=== PATIENT | male | born 1950 | race American Indian/Alaskan Native ===

== ENCOUNTER → 2016-07-16 | Outpatient (CLI) | payer MEDICARE ==
[~2016-07-16] MED LIST: ALLP300T; ALLP300T PO; ALN70T PO; AMOX-355 PO; ASP325T PO; ASP81TEC PO; BISO1TAB3 PO; BISO1TAB39; CALC-656 PO; CALC-794 PO; CARB1TAB6 PO; CITA10TA; CITA40TA19 PO; CLOP75TA; COLC0.6T56 PO; CPR500T PO; CRV25T PO; DABI150C5 PO; DICL100G18 TOP; FLUO20CA25 PO; FLUO40CA PO; FRSM40T PO; GBPN300C PO; HYDR-3583 PO; HYDR-3816 PO; ISM30TCR PO; ISM60TCR PO; ISOS5TAB3; KCL10CCR; LACT1CAP8 PO; LISI-597 PO; LISI10TA2 PO; LSNP20T PO; MAGN400T39 PO; METF-380 PO; METF850T2 PO; METFOR850T PO; METO-272 PO; METO50TA2 PO; MULT-35 PO; NAPR-243 PO; NAPR375T2 PO; NORT10CA PO; OMEP20TA2 PO; OMEP40CA36 PO; OMG1KC PO; PHEN100T26 PO; PNT40TEC PO; POTA10CA43 PO; POTA10TA36 PO; POTA20TA15 PO; PROP1TAB77 PO; RANI300T4; RANO500T2 PO; ROPI2TAB4 PO; RT-COMBINH IH; SIMV20TA3 PO; SIMV40TA4 PO; SMV20T PO; SULF1TAB35 PO; TAMS0.4C98 PO; TESTOSTERONE INJ IM; TMSL.4C PO; TRAM50TA2; TRAZ300T3 PO; TRZ100T PO; ZLP10T PO; ZOLP5TAB
--- NOTE | 2016-07-16 13:19 | Diagnostic Imaging Report ---
GASTRIC EMPTYING TIME SCAN TECHNIQUE: Anterior and posterior planar scintigraphic images of the stomach were obtained after the patient ingested 1.1 mCi of technetium 99m sulfur collate mixed with eggs. INDICATION: Nausea. COMPARISON: None available. FINDINGS: A time activity curve was calculated for the stomach with the following values of retained activity in the stomach post ingestion: 1 hour: 75% (delayed if greater than 90% retained) 2 hour: 61% (delayed if greater than 60% retained) 3 hour: 51% (delayed if greater than 30% retained) 4 hour: 45% (delayed if greater than 10%) The half-time (T1/2) for gastric emptying was 208 minutes minutes, which is abnormally prolonged. IMPRESSION: 1. Delayed gastric emptying which favors gastroparesis versus less likely partial outlet obstruction. Dictated by: Dictated on workstation # [id number]
== END ==
LOC: CARD 08:33
PROVIDERS: ATTEND Internal Medicine Gastroenterology
DX: R10.84 Generalized abdominal pain (principal); R11.0 Nausea
CPT/HCPCS: 78264

== ENCOUNTER → 2016-10-30 | Outpatient (CLI) | payer MEDICARE ==
[~2016-10-30] VITALS: Ht 172.7 cm; Wt 113.4 kg
[~2016-10-30] MED LIST changes: +CATHETER FLUSH 10 ML SYR IV PRN; +REGADENOSON 0.4 MG/5 ML SYR (LEXISCAN) IV ONE
[2016-10-30 14:39] VITALS: BP 175/82
--- NOTE | 2016-10-31 07:06 | STRESS TEST ---
DATE OF SERVICE: 10/30/2016 LEXISCAN MYOVIEW STRESS TEST PROCEDURE: Lexiscan Myoview stress test. REFERRING PHYSICIAN: Dr. Gaffney. INDICATION: Baseline heart rate is 67, baseline blood pressure 175/82, baseline EKG is sinus rhythm with ventricular paced rhythm. IN SUMMARY: The patient was injected with 9.16 mCi of technetium-99 Myoview and the resting images were obtained. Then, the patient received 0.4 mg of Lexiscan followed by 28.2 mCi of technetium-99 Myoview. Later during the test, there was intermittent intrinsic rhythm, which showed nondiagnostic T-wave abnormality. The resting and stress images were reviewed and compared in the short axis, horizontal long axis and vertical long axis views. Review of images showed decreased uptake including the true apex and inferoapical segment with no significant ischemia. SSS is 5, SDS 1, TID value 1.07. On the gated images, the left ventricle appeared to be prominent with mild diffuse left ventricular hypokinesia, dyskinesia of the apex with calculated ejection fraction of 46%. IN CONCLUSION: 1. The patient tolerated Lexiscan well. 2. Baseline paced rhythm with intermittent intrinsic rhythm showing abnormal EKG. 3. Aneurysmal apex with infarcted apex with no significant ischemia. 4. Prominent left ventricle with diffuse left ventricular hypokinesia, aneurysmal apex. Calculated ejection fraction of 46%. Job ID: [id number] DocumentID: [id number] Dictated Date: 10/30/2016 16:11:10 Primary Care Md Date: 10/30/2016 16:43:16 Dictated By: MARY SQUIRES MD
== END ==
LOC: CARD 12:59
PROVIDERS: ATTEND Internal Medicine Cardiovascular Disease
DX: R07.9 Chest pain, unspecified (principal); I10 Essential (primary) hypertension; E78.5 Hyperlipidemia, unspecified; R06.02 Shortness of breath; I63.9 Cerebral infarction, unspecified; Z82.49 Family history of ischemic heart disease and other diseases of the circulatory system
CPT/HCPCS: 78452; 93017

== ENCOUNTER → 2016-11-04 | Outpatient (CLI) | payer MEDICARE ==
[~2016-11-04] MED LIST changes: -CATHETER FLUSH 10 ML SYR IV PRN; -REGADENOSON 0.4 MG/5 ML SYR (LEXISCAN) IV ONE
[2016-11-04 14:36] LABS: BASOPHILS % (AUTO) 1 % (0-10); EOSINOPHILS # (AUTO) 0.2 10^3/uL (0.0-0.3); EOSINOPHILS % (AUTO) 3 % (0-10); LYMPHOCYTES # (AUTO) 1.2 X 10^3 (1.0-4.0); LYMPHOCYTES % (AUTO) 23 % (12-44); MEAN CORPUSCULAR HEMOGLOBIN 30 PG (25-34); MEAN CORPUSCULAR HGB CONC 35 G/DL (32-36); MEAN CORPUSCULAR VOLUME 85 FL (80-99); MEAN PLATELET VOLUME 9.1 FL (7.4-10.4); MONOCYTES # (AUTO) 0.5 X 10^3 (0.0-1.0); MONOCYTES % (AUTO) 9 % (0-12); NEUTROPHILS # (AUTO) 3.5 X 10^3 (1.8-7.8); NEUTROPHILS % (AUTO) 64 % (42-75); PLATELET COUNT 199 10^3/uL (130-400); RED BLOOD COUNT 4.37 10^6/uL (4.35-5.85); RED CELL DISTRIBUTION WIDTH 15.1 % (10.0-14.5); WHITE BLOOD COUNT 5.5 10^3/uL (4.3-11.0)
[2016-11-04 14:52] LABS: ALANINE AMINOTRANSFERASE 22 U/L (0-55); ALBUMIN 4.2 G/DL (3.2-4.5); ANION GAP 7 MMOL/L (5-14); ASPARTATE AMINO TRANSFERASE 17 U/L (5-34); BILIRUBIN,TOTAL 0.7 MG/DL (0.1-1.0); BLOOD UREA NITROGEN 13 MG/DL (7-18); BUN/CREATININE RATIO 16; CALCIUM 9.3 MG/DL (8.5-10.1); CARBON DIOXIDE 26 MMOL/L (21-32); CHLORIDE 108 MMOL/L (98-107); CHOLESTEROL 130 MG/DL (< 200); CREATININE SERUM 0.81 MG/DL (0.60-1.30); DIRECT LDL 71 MG/DL (1-129); GFR ESTIMATED > 60; GLUCOSE 110 MG/DL (70-105); POTASSIUM 3.8 MMOL/L (3.6-5.0); SODIUM 141 MMOL/L (135-145); TOTAL PROTEIN 6.5 G/DL (6.4-8.2); TRIGLYCERIDES 125 MG/DL (<150); URIC ACID 4.4 MG/DL (2.6-7.2); VLDL CHOLESTEROL 25 MG/DL (5-40)
== END ==
LOC: LAB 13:52
PROVIDERS: ATTEND Nurse Practitioner Adult Health
DX: E78.00 Pure hypercholesterolemia, unspecified (principal); M1A.0690 Idiopathic chronic gout, unspecified knee, without tophus (tophi)
CPT/HCPCS: 36415; 80053; 80061; 84550; 85025

== ENCOUNTER 2016-12-28 15:53 | Emergency (ER) | payer OTHER, MEDICARE ==
[~2016-12-28] VITALS: Ht 182.9 cm; Wt 90.7 kg
[~2016-12-28 15:53] MED LIST changes: -METO-272 PO; +METO-370 PO
[2016-12-28] MEDS ORDERED: NS 100 ML (IVPB) BAG IV ONE (17:00)
[2016-12-28] MEDS ORDERED: IOHEXOL 350 MG/ML 100 ML (OMNIPAQUE 350) VIAL IV ONE (17:00)
[2016-12-28 17:03] LABS: BASOPHILS % (AUTO) 1 % (0-10); EOSINOPHILS # (AUTO) 0.1 10^3/uL (0.0-0.3); EOSINOPHILS % (AUTO) 2 % (0-10); LYMPHOCYTES # (AUTO) 1.3 X 10^3 (1.0-4.0); LYMPHOCYTES % (AUTO) 19 % (12-44); MEAN CORPUSCULAR HEMOGLOBIN 29 PG (25-34); MEAN CORPUSCULAR HGB CONC 35 G/DL (32-36); MEAN CORPUSCULAR VOLUME 84 FL (80-99); MEAN PLATELET VOLUME 9.6 FL (7.4-10.4); MONOCYTES # (AUTO) 0.8 X 10^3 (0.0-1.0); MONOCYTES % (AUTO) 11 % (0-12); NEUTROPHILS # (AUTO) 4.6 X 10^3 (1.8-7.8); NEUTROPHILS % (AUTO) 67 % (42-75); PLATELET COUNT 220 10^3/uL (130-400); RED CELL DISTRIBUTION WIDTH 14.6 % (10.0-14.5); WHITE BLOOD COUNT 6.8 10^3/uL (4.3-11.0)
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
[2016-12-28 17:23] LABS: ALBUMIN 4.4 GM/DL (3.2-4.5); BILIRUBIN,TOTAL 0.7 MG/DL (0.1-1.0); CALCIUM 9.7 MG/DL (8.5-10.1); CREATININE SERUM 1.37 MG/DL (0.60-1.30); POTASSIUM 4.3 MMOL/L (3.6-5.0)
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
--- NOTE | 2016-12-28 17:40 | Diagnostic Imaging Report ---
INDICATION: Chest cold x 3 weeks. TECHNIQUE: Single view chest, 4:38 p.m. CORRELATION STUDY: 06/21/2016. FINDINGS: Left-sided pacemaker is stable. A right-sided catheter tip at the right atrium is unchanged. Unchanged cardiac enlargement and prominent mediastinum. Vasculature is improved and near normal on followup. Lung rose are overall relatively clear. IMPRESSION: Cardiac enlargement. Vasculature is improved and near normal on followup. No infiltrates. Dictated by: Dictated on workstation # [id number]
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
[2016-12-28 17:57] VITALS: BP 133/66
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
[2016-12-28 18:08] LABS: BILIRUBIN,URINE NEGATIVE (NEGATIVE); KETONES,URINE NEGATIVE (NEGATIVE); LEUKOCYTE ESTERASE ,URINE NEGATIVE (NEGATIVE); NITRITE,URINE NEGATIVE (NEGATIVE); PH,URINE 5 (5-9); PROTEIN,URINE NEGATIVE (NEGATIVE); SQUAMOUS EPITHELIAL CELL,UR 0-2 /HPF; UROBILINOGEN,URINE NORMAL (NORMAL); WBC,URINE 0-2 /HPF
--- NOTE | 2016-12-28 18:08 | Diagnostic Imaging Report ---
INDICATION: Back pain. EXAMINATION: CT thoracic and lumbar spine. Contiguous axial sections were taken through the thoracic and lumbar spine. Sagittal and coronal reconstructed images were also obtained. COMPARISON: There are no previous CT thoracic or lumbar spine examinations available for comparison. FINDINGS: On the reconstructed sagittal images there is a 30-40% compression deformity of the anterior superior endplate of T6. This injury was not clearly present on the prior chest exam of 06/21/16. Even so, this injury could be long-standing in nature. I am not convinced that this is related to an acute abnormality. Hower, if clinical concern regarding an acute abnormality persists, then a nuclear medicine bone scan should be considered for further study. The patient does have a pacemaker in place and this would preclude further evaluation by MRI. The other thoracic vertebrae heights are within normal limits. There is no fracture of the lumbar vertebra. There does not appear to be any significant high-grade central stenosis of the thoracic or lumbar spine. There are chronic pulmonary changes involving the visualized lungs. There is no paraspinal mass. The perinephric stranding about the kidneys, seen on the previous CT abdomen/pelvis exam of 05/27/16 is again evident and no different. IMPRESSION: 1. There is a 30-40% compression deformity of the superior endplate of T6. This injury may well be long-standing in nature. Recommendations as above. 2. No other acute bony abnormality is noted. 3. These results were discussed with Dr. Anna Glover in the ER. Dictated by: Dictated on workstation # [id number]
--- OUTSIDE RECORDS SUMMARY | 2016-12-31 09:48 | XMS REPORT | Continuity of Care Document ---
Author Author [facility] Organization [facility] Address Unknown Phone Unavailable Allergies Active Description Code Type Severity Reaction Onset Reported/Identified Relationship to Patient Clinical Status Yes NKANo Known Allergies NKA Miscellaneous Allergy Unknown N/ A 09/10/2005 Yes No Known Drug Allergies [id number] Drug Allergy Mild N/A 01/15/2009 Yes No Known Drug Allergies [id number] Drug Allergy Unknown N/ A 01/30/2015 Medications Problems Date Dx Coded Attending Type Code Diagnosis Diagnosed By 07/23/2010 Ot 530.81 07/23/2010 Ot 535.40 07/23/2010 Ot 578.1 12/15/2010 Ot 250.00 DIAB TONEI WO COMPL, TYPE II OR UNSPEC TY 12/15/2010 Ot 272.4 HYPERLIPIDEMIA NEC/NOS 12/15/2010 Ot 401.9 HYPERTENSION NOS 12/15/2010 Ot 414.01 CORONARY ATHEROSCLEROSIS OF [place] CORON 12/15/2010 Ot 440.0 AORTIC ATHEROSCLEROSIS 12/15/2010 Ot 440.21 ATHEROSCL [place] ARTER EXTREM W INTERMIT 12/15/2010 Ot 786.50 CHEST PAIN NOS 12/15/2010 Ot V45.01 CARDIAC PACEMAKER IN SITU 12/15/2010 Ot V45.82 PERCUTANEOUS TRANSLUM CORON ANGIOPLASTY 12/15/2010 Ot V58.66 LONG-TERM (CURRENT) USE OF ASPIRIN 12/15/2010 Ot V58.69 OTH MED,LT,CURRENT USE 03/12/2011 Ot 250.00 DIAB TONIE WO COMPL, TYPE II OR UNSPEC TY 03/12/2011 Ot 428.0 CONGESTIVE HEART FAILURE NOS 03/12/2011 Ot 459.81 VENOUS INSUFFICIENCY NOS 03/12/2011 Ot 496 CHR AIRWAY OBSTRUCT NEC 03/12/2011 Ot V58.66 LONG-TERM (CURRENT) USE OF ASPIRIN 03/12/2011 Ot V58.69 OTH MED,LT,CURRENT USE 09/16/2011 Ot 530.12 ACUTE ESOPHAGITIS 09/16/2011 Ot 531.90 STOMACH ULCER NOS 09/16/2011 Ot V58.69 OTH MED,LT,CURRENT USE 11/09/2011 Ot 250.00 DIAB TONIE WO COMPL, TYPE II OR UNSPEC TY 11/09/2011 Ot 530.81 ESOPHAGEAL REFLUX 11/09/2011 Ot 553.3 DIAPHRAGMATIC HERNIA 11/09/2011 Ot 791.9 ABN URINE FINDINGS NEC 06/12/2012 Ot 327.23 OBSTRUCTIVE SLEEP APNEA (ADULT) (PEDIATR 06/12/2012 Ot 327.51 PERIODIC LIMB MOVEMENT DISORDER 12/07/2012 MARY SQUIRES MD Ot 250.00 DIAB TONIE WO COMPL, TYPE II OR UNSPEC TY 12/07/2012 MARY SQUIRES MD Ot 272.4 HYPERLIPIDEMIA NEC/NOS 12/07/2012 MARY SQUIRES MD Ot 401.9 HYPERTENSION NOS 12/07/2012 MARY SQUIRES MD Ot 414.01 CORONARY ATHEROSCLEROSIS OF [place] CORON 12/07/2012 MARY SQUIRES MD Ot 414.4 CORONARY ATHEROSCLEROSIS DUE TO [place] 12/07/2012 MARY SQUIRES MD Ot 786.50 CHEST PAIN NOS 12/07/2012 MARY SQUIRES MD Ot V45.01 CARDIAC PACEMAKER IN SITU 12/07/2012 MARY SQUIRES MD Ot V45.82 PERCUTANEOUS TRANSLUM CORON ANGIOPLASTY 12/07/2012 MARY SQUIRES MD Ot V58.69 OT MED,LT,CURRENT USE 01/20/2013 CARMELLA RBOWNE, DEYVI Livingston Ot 786.50 CHEST PAIN NOS 02/21/2015 MIRELA DO, HERMELINDA F Ot 836.0 02/21/2015 MIRELA DO, HERMELINDA F Ot E000.8 02/21/2015 MIRELA DO, HERMELINDA F Ot E928.9 02/21/2015 MIRELA DO, HERMELINDA F Ot V72.63 02/21/2015 MIRELA DO, HERMELINDA F Ot V74.8 06/20/2015 HANNA WHITE MD Ot E11.9 TYPE 2 DIABETES MELLITUS WITHOUT COMPLIC 06/20/2015 HANNA WHITE MD Ot F32.9 MAJOR DEPRESSIVE DISORDER, SINGLE EPISOD 06/20/2015 HANNA WHITE MD Ot G20 PARKINSON'S DISEASE 06/20/2015 HANNA WHITE MD Ot G47.00 INSOMNIA, UNSPECIFIED 06/20/2015 HANNA WHITE MD Ot I10 ESSENTIAL (PRIMARY) HYPERTENSION 06/20/2015 HANNA WHITE MD Ot I25.10 ATHSCL HEART DISEASE OF [place] CORONARY 06/20/2015 HANNA WHITE MD Ot I73.9 PERIPHERAL VASCULAR DISEASE, UNSPECIFIED 06/20/2015 HANNA WHITE MD, Ot J44.9 CHRONIC OBSTRUCTIVE PULMONARY DISEASE, U 06/20/2015 HANNA WHITE MD, Ot K21.9 GASTRO-ESOPHAGEAL REFLUX DISEASE WITHOUT 06/20/2015 HANNA WHITE MD, Ot L03.113 CELLULITIS OF RIGHT UPPER LIMB 06/20/2015 HANNA WHITE MD Ot S61.441A PUNCTURE WOUND WITH FOREIGN BODY OF RIGH 06/20/2015 HANNA WHITE MD, Ot W45.8XXA OTH FOREIGN BODY OR OBJECT ENTERING THRO 06/20/2015 HANNA WHITE MD Ot Y92.[address]STRU[address] 06/20/2015 HANNA WHITE MD, Ot Y93.E9 ACTIVITY, OTHER INTERIOR PROPERTY AND CL 06/20/2015 HANNA WHITE MD, Ot Z23 ENCOUNTER FOR IMMUNIZATION 06/20/2015 HANNA WHITE MD Ot Z79.01 SENIOR CARE (CURRENT) USE OF ANTICOAGULANT 06/20/2015 HANNA WHITE MD Ot Z87.891 PERSONAL HISTORY OF NICOTINE DEPENDENCE 06/20/2015 HANNA WHITE MD Ot Z95.0 PRESENCE OF CARDIAC PACEMAKER 06/20/2015 HANNA WHITE MD Ot Z95.5 PRESENCE OF CORONARY ANGIOPLASTY IMPLANT 06/28/2015 MIRELA DO, HERMELINDA F Ot 836.0 06/28/2015 MIRELA DO, HERMELINDA F Ot E000.8 06/28/2015 MIREAL DO, HERMELINDA F Ot E928.9 06/28/2015 MIRELA DO, HERMELINDA F Ot V72.63 06/28/2015 MIRELA DO, HERMELINDA F Ot V74.8 07/10/2015 HANNA WHITE MD, Ot L03.113 07/10/2015 HANNA WHITE MD, Ot M79.641 07/17/2015 Ot 272.4 07/17/2015 Ot 401.9 07/17/2015 Ot 414.00 07/17/2015 Ot 272.4 07/17/2015 Ot 272.4 07/17/2015 Ot 401.9 07/17/2015 Ot 414.01 07/17/2015 Ot V58.69 07/17/2015 Ot 414.00 07/17/2015 Ot 786.50 07/17/2015 Ot 272.4 07/17/2015 Ot 401.9 07/17/2015 Ot 414.01 07/17/2015 Ot 414.00 07/17/2015 Ot 786.50 07/17/2015 Ot 733.90 07/17/2015 Ot 715.95 07/17/2015 Ot 459.81 07/17/2015 Ot V72.83 07/17/2015 Ot V74.8 07/17/2015 Ot V72.84 07/17/2015 Ot 414.00 07/17/2015 Ot 786.50 07/17/2015 Ot 272.4 07/17/2015 Ot 401.9 07/17/2015 Ot 414.01 07/17/2015 Ot 719.42 07/17/2015 Ot 782.0 07/17/2015 Ot 553.3 07/17/2015 Ot V72.63 07/17/2015 Ot V74.8 07/17/2015 Ot 272.4 07/17/2015 Ot 414.00 07/17/2015 Ot 272.4 07/17/2015 Ot 401.9 07/17/2015 Ot 414.00 07/17/2015 Ot 272.4 07/17/2015 Ot 414.00 07/17/2015 Ot 789.00 07/17/2015 Ot 729.82 07/17/2015 Ot V58.69 07/17/2015 Ot 496 07/17/2015 SHAW BROWNE, MARY Grant Ot 397.0 07/17/2015 SHAW BROWNE, MARY Grant Ot 414.00 07/17/2015 SHAW BROWNE, MARY Grant Ot 424.0 07/17/2015 SHAW BROWNE, MARY Grant Ot 786.50 07/17/2015 SHAW BROWNE, MARY Grant Ot V72.81 07/17/2015 SHAW BROWNE, MARY Grant Ot 272.4 07/17/2015 SHAW BROWNE, MARY Grant Ot 414.01 07/17/2015 MIRELA DOHERMELINDA F Ot 836.0 07/17/2015 MIRELA DO, HERMELINDA F Ot E000.8 07/17/2015 MIRELA DO HERMELINDA F Ot E928.9 07/17/2015 MIRELA DO, HERMELINDA F Ot V72.63 07/17/2015 MIRELA DO, HERMELINDA F Ot V74.8 07/17/2015 CINDY BROWNE, HANNA Castaneda Ot L03.113 07/17/2015 CINDY BROWNE, HANNA Castaneda Ot M79.641 07/25/2015 ALMA RIVERA MD Ot L03.113 07/27/2015 CINDY BROWNE, HANNA Castaneda Ot L03.113 CELLULITIS OF RIGHT UPPER LIMB 07/27/2015 CINDY BROWNE, HANNA Castaneda Ot M79.641 PAIN IN RIGHT HAND 08/09/2015 NICOLE BROWNE, ALMA Gilbert Ot L03.113 08/09/2015 NICOLE BROWNE, ALMA Gilbert Ot E11.9 TYPE 2 DIABETES MELLITUS WITHOUT COMPLIC 08/09/2015 NICOLE BROWNE, ALMA Gilbert Ot F32.9 MAJOR DEPRESSIVE DISORDER, SINGLE EPISOD 08/09/2015 ALMA RIVERA MD Ot F41.9 ANXIETY DISORDER, UNSPECIFIED 08/09/2015 ALMA RIVERA MD Ot G20 PARKINSON'S DISEASE 08/09/2015 ALMA RIVERA MD Ot I10 ESSENTIAL (PRIMARY) HYPERTENSION 08/09/2015 ALMA RIVERA MD Ot I25.10 ATHSCL HEART DISEASE OF [place] CORONARY 08/09/2015 NICOLE BROWNE, ALMA Gilbert Ot I48.91 UNSPECIFIED ATRIAL FIBRILLATION 08/09/2015 NICOLE BROWNE, ALMA Gilbert Ot J44.9 CHRONIC OBSTRUCTIVE PULMONARY DISEASE, U 08/09/2015 NICOLE BROWNE, ALMA Gilbert Ot M60.241 FOREIGN BODY GRANULOMA OF SOFT TISSUE, N 08/09/2015 ALMA RIVERA MD Ot Z18.9 RETAINED FOREIGN BODY FRAGMENTS, UNSPECI 08/17/2015 ALMA RIVERA MD Ot L03.113 08/23/2015 ALMA RIVERA MD Ot M60.241 08/23/2015 ALMA RIVERA MD Ot Z01.812 08/23/2015 ALMA RIVERA MD Ot Z11.2 08/23/2015 ALMA RIVERA MD Ot Z18.9 02/15/2016 Ot 272.4 HYPERLIPIDEMIA NEC/NOS 02/15/2016 Ot 401.9 HYPERTENSION NOS 02/15/2016 Ot 414.01 CORONARY ATHEROSCLEROSIS OF [place] CORON 02/15/2016 Ot V58.69 OTH MED,LT,CURRENT USE 02/15/2016 Ot 414.00 CORON ATHEROSCLER NOS TYPE VESSEL, NATIV 02/15/2016 Ot 786.50 CHEST PAIN NOS 02/15/2016 Ot 272.4 HYPERLIPIDEMIA NEC/NOS 02/15/2016 Ot 401.9 HYPERTENSION NOS 02/15/2016 Ot 414.01 CORONARY ATHEROSCLEROSIS OF [place] CORON 02/15/2016 Ot 414.00 CORON ATHEROSCLER NOS TYPE VESSEL, NATIV 02/15/2016 Ot 786.50 CHEST PAIN NOS 02/15/2016 Ot 733.90 BONE CARTILAGE DIS NOS 02/15/2016 Ot 715.95 OSTEOARTHROS NOS-PELVIS 02/15/2016 Ot 459.81 VENOUS INSUFFICIENCY NOS 02/15/2016 Ot V72.83 EXAM PRE-OPERATIVE NEC 02/15/2016 Ot V74.8 SCREEN-BACTERIAL DIS NEC 02/15/2016 Ot V72.84 EXAM PRE-OPERATIVE NOS 02/15/2016 Ot 414.00 CORON ATHEROSCLER NOS TYPE VESSEL, NATIV 02/15/2016 Ot 786.50 CHEST PAIN NOS 02/15/2016 Ot 272.4 HYPERLIPIDEMIA NEC/NOS 02/15/2016 Ot 401.9 HYPERTENSION NOS 02/15/2016 Ot 414.01 CORONARY ATHEROSCLEROSIS OF [place] CORON 02/15/2016 Ot 719.42 JOINT PAIN-UP/ARM 02/15/2016 Ot 782.0 SKIN SENSATION DISTURB 02/15/2016 Ot 553.3 DIAPHRAGMATIC HERNIA 02/15/2016 Ot V72.63 PRE-PROCEDURAL LABORATORY EXAMINATION 02/15/2016 Ot V74.8 SCREEN-BACTERIAL DIS NEC 02/15/2016 Ot 272.4 HYPERLIPIDEMIA NEC/NOS 02/15/2016 Ot 414.00 CORON ATHEROSCLER NOS TYPE VESSEL, NATIV 02/15/2016 Ot 272.4 HYPERLIPIDEMIA NEC/NOS 02/15/2016 Ot 401.9 HYPERTENSION NOS 02/15/2016 Ot 414.00 CORON ATHEROSCLER NOS TYPE VESSEL, NATIV 02/15/2016 Ot 272.4 HYPERLIPIDEMIA NEC/NOS 02/15/2016 Ot 414.00 CORON ATHEROSCLER NOS TYPE VESSEL, NATIV 02/15/2016 Ot 789.00 ABDOMINAL PAIN, UNSPECIFIED SITE 02/15/2016 Ot 729.82 CRAMP IN LIMB 02/15/2016 Ot V58.69 OT MED,LT,CURRENT USE 02/15/2016 Ot 496 CHR AIRWAY OBSTRUCT NEC 02/15/2016 SHAWMARY KING MD Ot 397.0 TRICUSPID VALVE DISEASE 02/15/2016 MARY SQUIRES MD Ot 414.00 CORON ATHEROSCLER NOS TYPE VESSEL, NATIV 02/15/2016 MARY SQUIRES MD Ot 424.0 MITRAL VALVE DISORDER 02/15/2016 MARY SQUIRES MD Ot 786.50 CHEST PAIN NOS 02/15/2016 MARY SQUIRES MD Ot V72.81 [id number] CARDIOVASCULAR 02/15/2016 MARY SQUIRES MD Ot 272.4 HYPERLIPIDEMIA NEC/NOS 02/15/2016 MARY SQUIRES MD Ot 414.01 CORONARY ATHEROSCLEROSIS OF [place] CORON 02/15/2016 HERMELINDA DIETZ DO Ot 836.0 TEAR MED MENISC KNEE-CUR 02/15/2016 HERMELINDA DIETZ DO Ot E000.8 OTHER EXTERNAL CAUSE STATUS 02/15/2016 HERMELINDA DIETZ DO Ot E928.9 ACCIDENT NOS 02/15/2016 HERMELINDA DIETZ DO Ot V72.63 PRE-PROCEDURAL LABORATORY EXAMINATION 02/15/2016 HERMELINDA DIETZ DO Ot V74.8 SCREEN-BACTERIAL DIS NEC 02/15/2016 ALMA RIVERA MD Ot L03.113 CELLULITIS OF RIGHT UPPER LIMB 02/15/2016 ALMA RIVERA MD, Ot M60.241 FOREIGN BODY GRANULOMA OF SOFT TISSUE, N 02/15/2016 ALMA RIVERA MD Ot Z01.812 ENCOUNTER FOR PREPROCEDURAL LABORATORY E 02/15/2016 ALMA RIVERA MD, Ot Z11.2 ENCOUNTER FOR SCREENING FOR OTHER BACTER 02/15/2016 ALMA RIVERA MD, Ot Z18.9 RETAINED FOREIGN BODY FRAGMENTS, UNSPECI 02/16/2016 ZEHRA BROWNE, RANDELL Yousif Ot G47.33 OBSTRUCTIVE SLEEP APNEA (ADULT) (PEDIATR 02/19/2016 MARY SQUIRES MD Ot E78.5 HYPERLIPIDEMIA, UNSPECIFIED 02/19/2016 MARY SQUIRES MD Ot I10 ESSENTIAL (PRIMARY) HYPERTENSION 02/19/2016 MARY SQUIRES MD Ot I25.10 ATHSCL HEART DISEASE OF [place] CORONARY 02/19/2016 MARY SQUIRES MD Ot I63.9 CEREBRAL INFARCTION, UNSPECIFIED 02/19/2016 MARY SQUIRES MD Ot R00.2 PALPITATIONS 02/19/2016 MARY SQUIRES MD Ot R07.9 CHEST PAIN, UNSPECIFIED 02/21/2016 ZEHRA BROWNE, RANDELL Yousif Ot G47.33 OBSTRUCTIVE SLEEP APNEA (ADULT) (PEDIATR 03/12/2016 MARY SQUIRES MD Ot E78.5 HYPERLIPIDEMIA, UNSPECIFIED 03/12/2016 MARY SQUIRES MD Ot I10 ESSENTIAL (PRIMARY) HYPERTENSION 03/12/2016 MARY SQUIRES MD Ot I25.10 ATHSCL HEART DISEASE OF [place] CORONARY 03/12/2016 MARY SQUIRES MD Ot I63.9 CEREBRAL INFARCTION, UNSPECIFIED 03/12/2016 MARY SQUIRES MD Ot R00.2 PALPITATIONS 03/12/2016 MARY SQUIRES MD Ot R07.9 CHEST PAIN, UNSPECIFIED 04/10/2016 Ot 414.00 CORON ATHEROSCLER NOS TYPE VESSEL, NATIV 04/10/2016 Ot 786.50 CHEST PAIN NOS 04/10/2016 Ot 272.4 HYPERLIPIDEMIA NEC/NOS 04/10/2016 Ot 401.9 HYPERTENSION NOS 04/10/2016 Ot 414.01 CORONARY ATHEROSCLEROSIS OF [place] CORON 04/10/2016 Ot 414.00 CORON ATHEROSCLER NOS TYPE VESSEL, NATIV 04/10/2016 Ot 786.50 CHEST PAIN NOS 04/10/2016 Ot 733.90 BONE CARTILAGE DIS NOS 04/10/2016 Ot 715.95 OSTEOARTHROS NOS-PELVIS 04/10/2016 Ot 459.81 VENOUS INSUFFICIENCY NOS 04/10/2016 Ot V72.83 EXAM PRE-OPERATIVE NEC 04/10/2016 Ot V74.8 SCREEN-BACTERIAL DIS NEC 04/10/2016 Ot V72.84 EXAM PRE-OPERATIVE NOS 04/10/2016 Ot 414.00 CORON ATHEROSCLER NOS TYPE VESSEL, NATIV 04/10/2016 Ot 786.50 CHEST PAIN NOS 04/10/2016 Ot 272.4 HYPERLIPIDEMIA NEC/NOS 04/10/2016 Ot 401.9 HYPERTENSION NOS 04/10/2016 Ot 414.01 CORONARY ATHEROSCLEROSIS OF [place] CORON 04/10/2016 Ot 719.42 JOINT PAIN-UP/ARM 04/10/2016 Ot 782.0 SKIN SENSATION DISTURB 04/10/2016 Ot 553.3 DIAPHRAGMATIC HERNIA 04/10/2016 Ot V72.63 PRE-PROCEDURAL LABORATORY EXAMINATION 04/10/2016 Ot V74.8 SCREEN-BACTERIAL DIS NEC 04/10/2016 Ot 272.4 HYPERLIPIDEMIA NEC/NOS 04/10/2016 Ot 414.00 CORON ATHEROSCLER NOS TYPE VESSEL, NATIV 04/10/2016 Ot 272.4 HYPERLIPIDEMIA NEC/NOS 04/10/2016 Ot 401.9 HYPERTENSION NOS 04/10/2016 Ot 414.00 CORON ATHEROSCLER NOS TYPE VESSEL, NATIV 04/10/2016 Ot 272.4 HYPERLIPIDEMIA NEC/NOS 04/10/2016 Ot 414.00 CORON ATHEROSCLER NOS TYPE VESSEL, NATIV 04/10/2016 Ot 789.00 ABDOMINAL PAIN, UNSPECIFIED SITE 04/10/2016 Ot 729.82 CRAMP IN LIMB 04/10/2016 Ot V58.69 OT MED,LT,CURRENT USE 04/10/2016 Ot 496 CHR AIRWAY OBSTRUCT NEC 04/10/2016 SHAW BROWNE, MARY Grant Ot 397.0 TRICUSPID VALVE DISEASE 04/10/2016 SHAW BROWNE, MARY Grant Ot 414.00 CORON ATHEROSCLER NOS TYPE VESSEL, NATIV 04/10/2016 MARY SQUIRES MD Ot 424.0 MITRAL VALVE DISORDER 04/10/2016 SHAW BROWNE, MARY Grant Ot 786.50 CHEST PAIN NOS 04/10/2016 SHAW BROWNE, MARY Grant Ot V72.81 [id number] CARDIOVASCULAR 04/10/2016 SHAW BROWNE, MARY Grant Ot 272.4 HYPERLIPIDEMIA NEC/NOS 04/10/2016 SHAW BROWNE, MARY Grant Ot 414.01 CORONARY ATHEROSCLEROSIS OF [place] CORON 04/10/2016 HERMELINDA DIETZ DO Ot 836.0 TEAR MED MENISC KNEE-CUR 04/10/2016 HERMELINDA DIETZ DO Ot E000.8 OTHER EXTERNAL CAUSE STATUS 04/10/2016 HERMELINDA DIETZ DO Ot E928.9 ACCIDENT NOS 04/10/2016 HERMELINDA DIETZ DO Ot V72.63 PRE-PROCEDURAL LABORATORY EXAMINATION 04/10/2016 HERMELINDA DIETZ DO Ot V74.8 SCREEN-BACTERIAL DIS NEC 04/10/2016 NICOLE BROWNE, ALMA Gilbert Ot L03.113 CELLULITIS OF RIGHT UPPER LIMB 04/10/2016 NICOLE BROWNE, ALMA Gilbert Ot M60.241 FOREIGN BODY GRANULOMA OF SOFT TISSUE, N 04/10/2016 ALMA RIVERA MD Ot Z01.812 ENCOUNTER FOR PREPROCEDURAL LABORATORY E 04/10/2016 ALMA RIVERA MD, Ot Z11.2 ENCOUNTER FOR SCREENING FOR OTHER BACTER 04/10/2016 ALMA RIVERA MD Ot Z18.9 RETAINED FOREIGN BODY FRAGMENTS, UNSPECI 04/10/2016 MARY SQUIRES MD Ot E78.5 HYPERLIPIDEMIA, UNSPECIFIED 04/10/2016 MARY SQUIRES MD Ot I10 ESSENTIAL (PRIMARY) HYPERTENSION 04/10/2016 MARY SQUIRES MD Ot I25.10 ATHSCL HEART DISEASE OF [place] CORONARY 04/10/2016 MARY SQUIRES MD Ot I63.9 CEREBRAL INFARCTION, UNSPECIFIED 04/10/2016 MARY SQUIRES MD Ot R00.2 PALPITATIONS 04/10/2016 MARY SQUIRES MD Ot R07.9 CHEST PAIN, UNSPECIFIED 04/10/2016 MIRELA DO, HERMELINDA F Ot 836.0 TEAR MED MENISC KNEE-CUR 04/10/2016 MIRELA DO, HERMELINDA F Ot E000.8 OTHER EXTERNAL CAUSE STATUS 04/10/2016 MIRELA DO, HERMELINDA F Ot E928.9 ACCIDENT NOS 04/10/2016 MIRELA DO, HERMELINDA F Ot V72.63 PRE-PROCEDURAL LABORATORY EXAMINATION 04/10/2016 MIRELA SCHWARZ HERMELINDA F Ot V74.8 SCREEN-BACTERIAL DIS NEC 04/10/2016 MARY SQUIRES MD Ot E78.5 HYPERLIPIDEMIA, UNSPECIFIED 04/10/2016 MARY SQUIRES MD Ot I10 ESSENTIAL (PRIMARY) HYPERTENSION 04/10/2016 MARY SQUIRES MD Ot I25.10 ATHSCL HEART DISEASE OF [place] CORONARY 04/10/2016 MARY SQUIRES MD Ot I63.9 CEREBRAL INFARCTION, UNSPECIFIED 04/10/2016 MARY SQUIRES MD Ot R00.2 PALPITATIONS 04/10/2016 MARY SQUIRES MD Ot R07.9 CHEST PAIN, UNSPECIFIED 04/11/2016 MARY SQUIRES MD Ot E78.5 HYPERLIPIDEMIA, UNSPECIFIED 04/11/2016 MARY SQUIRES MD Ot I10 ESSENTIAL (PRIMARY) HYPERTENSION 04/11/2016 MARY SQUIRES MD Ot I25.10 ATHSCL HEART DISEASE OF [place] CORONARY 04/11/2016 MARY SQUIRES MD Ot I63.9 CEREBRAL INFARCTION, UNSPECIFIED 04/11/2016 MARY SQUIRES MD Ot R07.9 CHEST PAIN, UNSPECIFIED 05/02/2016 MARY SQUIRES MD Ot E78.5 HYPERLIPIDEMIA, UNSPECIFIED 05/02/2016 MARY SQUIRES MD Ot I10 ESSENTIAL (PRIMARY) HYPERTENSION 05/02/2016 MARY SQUIRES MD Ot I25.10 ATHSCL HEART DISEASE OF [place] CORONARY 05/02/2016 MARY SQUIRES MD Ot I63.9 CEREBRAL INFARCTION, UNSPECIFIED 05/02/2016 MARY SQUIRES MD Ot R07.9 CHEST PAIN, UNSPECIFIED 05/09/2016 MARY SQUIRES MD Ot E78.5 HYPERLIPIDEMIA, UNSPECIFIED 05/09/2016 MARY SQUIRES MD Ot I10 ESSENTIAL (PRIMARY) HYPERTENSION 05/09/2016 MARY SQUIRES MD Ot I25.10 ATHSCL HEART DISEASE OF [place] CORONARY 05/09/2016 MARY SQUIRES MD Ot I63.9 CEREBRAL INFARCTION, UNSPECIFIED 05/09/2016 MARY SQUIRES MD Ot R07.9 CHEST PAIN, UNSPECIFIED 05/27/2016 Ot 414.00 CORON ATHEROSCLER NOS TYPE VESSEL, NATIV 05/27/2016 Ot 786.50 CHEST PAIN NOS 05/27/2016 Ot 272.4 HYPERLIPIDEMIA NEC/NOS 05/27/2016 Ot 401.9 HYPERTENSION NOS 05/27/2016 Ot 414.01 CORONARY ATHEROSCLEROSIS OF [place] CORON 05/27/2016 Ot 414.00 CORON ATHEROSCLER NOS TYPE VESSEL, NATIV 05/27/2016 Ot 786.50 CHEST PAIN NOS 05/27/2016 Ot 733.90 BONE CARTILAGE DIS NOS 05/27/2016 Ot 715.95 OSTEOARTHROS NOS-PELVIS 05/27/2016 Ot 459.81 VENOUS INSUFFICIENCY NOS 05/27/2016 Ot V72.83 EXAM PRE-OPERATIVE NEC 05/27/2016 Ot V74.8 SCREEN-BACTERIAL DIS NEC 05/27/2016 Ot V72.84 EXAM PRE-OPERATIVE NOS 05/27/2016 Ot 414.00 CORON ATHEROSCLER NOS TYPE VESSEL, NATIV 05/27/2016 Ot 786.50 CHEST PAIN NOS 05/27/2016 Ot 272.4 HYPERLIPIDEMIA NEC/NOS 05/27/2016 Ot 401.9 HYPERTENSION NOS 05/27/2016 Ot 414.01 CORONARY ATHEROSCLEROSIS OF [place] CORON 05/27/2016 Ot 719.42 JOINT PAIN-UP/ARM 05/27/2016 Ot 782.0 SKIN SENSATION DISTURB 05/27/2016 Ot 553.3 DIAPHRAGMATIC HERNIA 05/27/2016 Ot V72.63 PRE-PROCEDURAL LABORATORY EXAMINATION 05/27/2016 Ot V74.8 SCREEN-BACTERIAL DIS NEC 05/27/2016 Ot 272.4 HYPERLIPIDEMIA NEC/NOS 05/27/2016 Ot 414.00 CORON ATHEROSCLER NOS TYPE VESSEL, NATIV 05/27/2016 Ot 272.4 HYPERLIPIDEMIA NEC/NOS 05/27/2016 Ot 401.9 HYPERTENSION NOS 05/27/2016 Ot 414.00 CORON ATHEROSCLER NOS TYPE VESSEL, NATIV 05/27/2016 Ot 272.4 HYPERLIPIDEMIA NEC/NOS 05/27/2016 Ot 414.00 CORON ATHEROSCLER NOS TYPE VESSEL, NATIV 05/27/2016 Ot 789.00 ABDOMINAL PAIN, UNSPECIFIED SITE 05/27/2016 Ot 729.82 CRAMP IN LIMB 05/27/2016 Ot V58.69 OT MED,LT,CURRENT USE 05/27/2016 Ot 496 CHR AIRWAY OBSTRUCT NEC 05/27/2016 SHAW BROWNE, MARY Grant Ot 397.0 TRICUSPID VALVE DISEASE 05/27/2016 MARY SQUIRES MD Ot 414.00 CORON ATHEROSCLER NOS TYPE VESSEL, NATIV 05/27/2016 MARY SQUIRES MD Ot 424.0 MITRAL VALVE DISORDER 05/27/2016 MARY SQUIRES MD Ot 786.50 CHEST PAIN NOS 05/27/2016 MARY SQUIRES MD Ot V72.81 WYRV-MOS-JVUIZLNFE CARDIOVASCULAR 05/27/2016 MARY SQUIRES MD Ot 272.4 HYPERLIPIDEMIA NEC/NOS 05/27/2016 MARY SQUIRES MD Ot 414.01 CORONARY ATHEROSCLEROSIS OF [place] CORON 05/27/2016 HERMELINDA DIETZ DO Ot 836.0 TEAR MED MENISC KNEE-CUR 05/27/2016 HERMELINDA DIETZ DO Ot E000.8 OTHER EXTERNAL CAUSE STATUS 05/27/2016 HERMELINDA DIETZ DO Ot E928.9 ACCIDENT NOS 05/27/2016 HERMELINDA DIETZ DO Ot V72.63 PRE-PROCEDURAL LABORATORY EXAMINATION 05/27/2016 HERMELINDA DIETZ DO Ot V74.8 SCREEN-BACTERIAL DIS NEC 05/27/2016 NICOLE BROWNE, ALMA Gilbert Ot L03.113 CELLULITIS OF RIGHT UPPER LIMB 05/27/2016 NICOLE BROWNE, ALMA Gilbert Ot M60.241 FOREIGN BODY GRANULOMA OF SOFT TISSUE, N 05/27/2016 ALMA RIVERA MD Ot Z01.812 ENCOUNTER FOR PREPROCEDURAL LABORATORY E 05/27/2016 ALMA RIVERA MD Ot Z11.2 ENCOUNTER FOR SCREENING FOR OTHER BACTER 05/27/2016 ALMA RIVERA MD Ot Z18.9 RETAINED FOREIGN BODY FRAGMENTS, UNSPECI 05/27/2016 MARY SQUIRES MD Ot E78.5 HYPERLIPIDEMIA, UNSPECIFIED 05/27/2016 MARY SQUIRES MD Ot I10 ESSENTIAL (PRIMARY) HYPERTENSION 05/27/2016 MARY SQUIRES MD Ot I25.10 ATHSCL HEART DISEASE OF [place] CORONARY 05/27/2016 MARY SQUIRES MD Ot I63.9 CEREBRAL INFARCTION, UNSPECIFIED 05/27/2016 MARY SQUIRES MD Ot R07.9 CHEST PAIN, UNSPECIFIED 05/27/2016 MARY SQUIRES MD Ot E78.5 HYPERLIPIDEMIA, UNSPECIFIED 05/27/2016 MARY SQUIRES MD Ot I10 ESSENTIAL (PRIMARY) HYPERTENSION 05/27/2016 MARY SQUIRES MD Ot I25.10 ATHSCL HEART DISEASE OF [place] CORONARY 05/27/2016 MARY SQUIRES MD Ot I63.9 CEREBRAL INFARCTION, UNSPECIFIED 05/27/2016 MARY SQUIRES MD Ot R00.2 PALPITATIONS 05/27/2016 MARY SQUIRES MD Ot R07.9 CHEST PAIN, UNSPECIFIED 05/27/2016 EVON FSIHER MD Ot E11.9 TYPE 2 DIABETES MELLITUS WITHOUT COMPLIC 05/27/2016 EVON FISHER MD Ot G20 PARKINSON'S DISEASE 05/27/2016 EVON FISHER MD Ot N39.0 URINARY TRACT INFECTION, SITE NOT SPECIF 05/27/2016 EVON FISHER MD Ot R10.32 LEFT LOWER QUADRANT PAIN 05/27/2016 EVON FISHER MD Ot R11.2 NAUSEA WITH VOMITING, UNSPECIFIED 05/27/2016 EVON FISHER MD Ot R19.7 DIARRHEA, UNSPECIFIED 05/27/2016 EVON FISHER MD Ot Z79.84 RACE ENGINE BUILDER (CURRENT) USE OF ORAL HYPOGLYC 05/27/2016 EVON FISHER MD Ot Z79.899 OTHER SENIOR CARE (CURRENT) DRUG THERAPY 05/27/2016 EVON FISHER MD Ot Z87.891 PERSONAL HISTORY OF NICOTINE DEPENDENCE 05/27/2016 NATALIA BROWNE, EVON Gr Ot Z95.0 PRESENCE OF CARDIAC PACEMAKER 05/29/2016 EVON FISHER MD Ot E11.9 TYPE 2 DIABETES MELLITUS WITHOUT COMPLIC 05/29/2016 EVON FISHER MD Ot G20 PARKINSON'S DISEASE 05/29/2016 EVON FISHER MD Ot N39.0 URINARY TRACT INFECTION, SITE NOT SPECIF 05/29/2016 EVON FISHER MD Ot R10.32 LEFT LOWER QUADRANT PAIN 05/29/2016 EVON FISHER MD Ot R11.2 NAUSEA WITH VOMITING, UNSPECIFIED 05/29/2016 EVON FISHER MD Ot R19.7 DIARRHEA, UNSPECIFIED 05/29/2016 EVON FISHER MD Ot Z79.84 RACE ENGINE BUILDER (CURRENT) USE OF ORAL HYPOGLYC 05/29/2016 EVON FISHER MD Ot Z79.899 OTHER RACE ENGINE BUILDER (CURRENT) DRUG THERAPY 05/29/2016 EVON FISHER MD Ot Z87.891 PERSONAL HISTORY OF NICOTINE DEPENDENCE 05/29/2016 EVON FISHER MD Ot Z95.0 PRESENCE OF CARDIAC PACEMAKER 05/31/2016 EVON FISHER MD Ot E11.9 TYPE 2 DIABETES MELLITUS WITHOUT COMPLIC 05/31/2016 EVON FISHER MD Ot G20 PARKINSON'S DISEASE 05/31/2016 EVON FISHER MD Ot N39.0 URINARY TRACT INFECTION, SITE NOT SPECIF 05/31/2016 EVON FISHER MD Ot R10.32 LEFT LOWER QUADRANT PAIN 05/31/2016 EVON FISHER MD Ot R11.2 NAUSEA WITH VOMITING, UNSPECIFIED 05/31/2016 EVON FISHER MD Ot R19.7 DIARRHEA, UNSPECIFIED 05/31/2016 EVON FISHER MD Ot Z79.84 RACE ENGINE BUILDER (CURRENT) USE OF ORAL HYPOGLYC 05/31/2016 EVON FISHER MD Ot Z79.899 OTHER RACE ENGINE BUILDER (CURRENT) DRUG THERAPY 05/31/2016 EVON FISHER MD Ot Z87.891 PERSONAL HISTORY OF NICOTINE DEPENDENCE 05/31/2016 EVON FISHER MD Ot Z95.0 PRESENCE OF CARDIAC PACEMAKER 06/02/2016 NATALIA MD, EVON S Ot E11.9 TYPE 2 DIABETES MELLITUS WITHOUT COMPLIC 06/02/2016 NATALIA BROWNE, EVON Gr Ot G20 PARKINSON'S DISEASE 06/02/2016 NATALIA BROWNE, EVON Gr Ot N39.0 URINARY TRACT INFECTION, SITE NOT SPECIF 06/02/2016 NATALIA BROWNE, EVON Gr Ot R10.32 LEFT LOWER QUADRANT PAIN 06/02/2016 NATALIA BROWNE, EVON Gr Ot R11.2 NAUSEA WITH VOMITING, UNSPECIFIED 06/02/2016 NATALIA BROWNE, EVON Gr Ot R19.7 DIARRHEA, UNSPECIFIED 06/02/2016 NATALIA BROWNE, EVON Gr Ot Z79.84 RACE ENGINE BUILDER (CURRENT) USE OF ORAL HYPOGLYC 06/02/2016 NATALIA BROWNE, EVON Maile Ot Z79.899 OTHER RACE ENGINE BUILDER (CURRENT) DRUG THERAPY 06/02/2016 NATALIA BROWNE, EVON Gr Ot Z87.891 PERSONAL HISTORY OF NICOTINE DEPENDENCE 06/02/2016 NATALIA BROWNE, EVON Gr Ot Z95.0 PRESENCE OF CARDIAC PACEMAKER 06/24/2016 HUSAM CONTRERAS GEOTECHNICIAN Ot I50.9 HEART FAILURE, UNSPECIFIED 07/15/2016 HUSAM CONTRERAS GEOTECHNICIAN Ot I50.9 HEART FAILURE, UNSPECIFIED 07/17/2016 AYUSH BROWNE, GABY P Ot R10.84 GENERALIZED ABDOMINAL PAIN 07/17/2016 GABY PEACOCK MD P Ot R11.0 NAUSEA 07/22/2016 HUSAM CONTRERAS GEOTECHNICIAN Ot I50.9 HEART FAILURE, UNSPECIFIED 08/13/2016 GABY PEACOCK MD P Ot R10.84 GENERALIZED ABDOMINAL PAIN 08/13/2016 GABY PEACOCK MD P Ot R11.0 NAUSEA 08/15/2016 GABY PEACOCK MD P Ot R10.84 GENERALIZED ABDOMINAL PAIN 08/15/2016 GABY PEACOCK MD P Ot R11.0 NAUSEA 10/16/2016 Ot V72.84 EXAM PRE-OPERATIVE NOS 10/16/2016 Ot 414.00 CORON ATHEROSCLER NOS TYPE VESSEL, NATIV 10/16/2016 Ot 786.50 CHEST PAIN NOS 10/16/2016 Ot 272.4 HYPERLIPIDEMIA NEC/NOS 10/16/2016 Ot 401.9 HYPERTENSION NOS 10/16/2016 Ot 414.01 CORONARY ATHEROSCLEROSIS OF [place] CORON 10/16/2016 Ot 719.42 JOINT PAIN-UP/ARM 10/16/2016 Ot 782.0 SKIN SENSATION DISTURB 10/16/2016 Ot 553.3 DIAPHRAGMATIC HERNIA 10/16/2016 Ot V72.63 PRE-PROCEDURAL LABORATORY EXAMINATION 10/16/2016 Ot V74.8 SCREEN-BACTERIAL DIS NEC 10/16/2016 Ot 272.4 HYPERLIPIDEMIA NEC/NOS 10/16/2016 Ot 414.00 CORON ATHEROSCLER NOS TYPE VESSEL, NATIV 10/16/2016 Ot 272.4 HYPERLIPIDEMIA NEC/NOS 10/16/2016 Ot 401.9 HYPERTENSION NOS 10/16/2016 Ot 414.00 CORON ATHEROSCLER NOS TYPE VESSEL, NATIV 10/16/2016 Ot 272.4 HYPERLIPIDEMIA NEC/NOS 10/16/2016 Ot 414.00 CORON ATHEROSCLER NOS TYPE VESSEL, NATIV 10/16/2016 Ot 789.00 ABDOMINAL PAIN,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
== END 2016-12-28 17:57 | disposition home or self-care (01) ==
LOC: EDUNIT# 15:53 → ER 15:54
DX: M10.9 Gout, unspecified; F31.9 Bipolar disorder, unspecified; M19.90 Unspecified osteoarthritis, unspecified site; M81.0 Age-related osteoporosis without current pathological fracture; Z82.49 Family history of ischemic heart disease and other diseases of the circulatory system; S39.011A Strain of muscle, fascia and tendon of abdomen, initial encounter; E11.9 Type 2 diabetes mellitus without complications; M25.551 Pain in right hip; Z95.0 Presence of cardiac pacemaker; J44.9 Chronic obstructive pulmonary disease, unspecified; S16.1XXA Strain of muscle, fascia and tendon at neck level, initial encounter; F43.10 Post-traumatic stress disorder, unspecified; F41.9 Anxiety disorder, unspecified; M25.561 Pain in right knee; S29.012A Strain of muscle and tendon of back wall of thorax, initial encounter; K21.9 Gastro-esophageal reflux disease without esophagitis; Z79.84 Long term (current) use of oral hypoglycemic drugs; Z95.5 Presence of coronary angioplasty implant and graft; S22.050A Wedge compression fracture of T5-T6 vertebra, initial encounter for closed fracture; G20 Parkinson's disease; V43.62XA Car passenger injured in collision with other type car in traffic accident, initial encounter
CPT/HCPCS: 36415; 70450; 71010; 71260; 72125; 72128; 72131; 72170; 73502; 73562; 74177; 80053; 81000; 82150; 83690; 85025; 93041

== ENCOUNTER 2017-01-08 13:27 | Outpatient (CLI) | payer MEDICARE ==
[~2017-01-08] VITALS: Ht 182.9 cm; Wt 122.7 kg
[~2017-01-08 13:27] MED LIST changes: +METO-272 PO; -METO-370 PO
[2017-01-08] MEDS ORDERED: BUDE10.2 IH (13:56)
[2017-01-08] MEDS ORDERED: METF500T4 PO (13:56)
[2017-01-08] MEDS ORDERED: CYAN50TA3 PO (13:56)
[2017-01-08] MEDS ORDERED: CARV25TA PO (13:56)
[2017-01-08] MEDS ORDERED: BUPR-168 PO (13:56)
[2017-01-08] MEDS ORDERED: DOXA8TAB73 PO (13:56)
[2017-01-08] MEDS ORDERED: DONE10TA41 PO (13:56)
[2017-01-08] MEDS ORDERED: ISM60TCR PO (13:56)
[2017-01-08] MEDS ORDERED: ONDA8TAB13 PO (13:56)
[2017-01-08] MEDS ORDERED: HYDR200T46 PO (13:56)
[2017-01-08] MEDS ORDERED: ATOR20TA66 PO (13:56)
[2017-01-08] MEDS ORDERED: AMLO10TA2 PO (13:56)
[2017-01-08] MEDS ORDERED: AMIT25TA9 PO (13:56)
[2017-01-08] MEDS ORDERED: PANT40TA3 PO (13:56)
[2017-01-08] MEDS ORDERED: FURO20TA4 PO (13:56)
[2017-01-08 14:05] VITALS: BP 113/63
== END 2017-01-08 14:35 | disposition home or self-care (01) ==
LOC: PREOP 13:27
PROVIDERS: ATTEND Orthopaedic Surgery
DX: Z01.818 Encounter for other preprocedural examination (principal); Z11.2 Encounter for screening for other bacterial diseases; M23.203 Derangement of unspecified medial meniscus due to old tear or injury, right knee; M94.261 Chondromalacia, right knee
CPT/HCPCS: 87081

== ENCOUNTER 2017-01-15 06:43 | Day surgery (SDC) | payer MEDICARE ==
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
[~2017-01-15] VITALS: Ht 182.9 cm; Wt 122.7 kg
[~2017-01-15 06:43] MED LIST changes: +AMIT25TA9 PO; +AMLO10TA2 PO; +ATOR20TA66 PO; +BUDE10.2 IH; +BUPR-168 PO; +CARV25TA PO; +CYAN50TA3 PO; +DONE10TA41 PO; +DOXA8TAB73 PO; +FURO20TA4 PO; +HYDR200T46 PO; +METF500T4 PO; +NS (IVPB) 50 ML ONE; +ONDA8TAB13 PO; +PANT40TA3 PO; +ceFAZolin 1,000 MG (ANCEF) VIAL ONE
[2017-01-15] MEDS ORDERED: LIDOCAINE 2% 20 ML (XYLOCAINE) VIAL ONE (07:07)
[2017-01-15] MEDS ORDERED: fentaNYL INJECTION 100 MCG/2 ML AMP ONE (07:07)
[2017-01-15] MEDS ORDERED: SEVOFLURANE (ULTANE) 15 ML INHAL SOLN ONE ×3 (07:07→08:44)
[2017-01-15] MEDS ORDERED: LACTATED RINGERS 1,000 ML IV ONE (07:07)
[2017-01-15] MEDS ORDERED: ONDANSETRON 4 MG/2 ML (SDV) Z0FRAN ONE (07:07)
[2017-01-15] MEDS ORDERED: proPOfol 200 MG/20 ML (DIPRIVAN) VIAL IV ONE (07:07)
[2017-01-15] MEDS ORDERED: MIDAZOLAM 2 MG/2 ML (VERSED) VIAL ONE (07:07)
[2017-01-15] MEDS ORDERED: DEXAMETHASONE PF 10 MG/ML (DECADRON) VIAL ONE (07:07)
[2017-01-15] MEDS ORDERED: ceFAZolin 1 GM/NS 50 ML IVPB IV ONE ×2 (07:15)
[2017-01-15 07:19] VITALS: BP 158/75
--- NOTE | 2017-01-15 07:28 | Progress Note-Pre Operative ---
Pre-Operative Progress Note H&P Reviewed The H&P was reviewed, patient examined and no changes noted. Date Seen by Provider: Jan 15, 2017 Time Seen by Provider: 07:15 Date H&P Reviewed: Jan 15, 2017 Time H&P Reviewed: 07:12 Pre-Operative Diagnosis: right knee medial meniscal tear and chondromalacia ALMA RIVERA MD Jan 15, 2017 07:28
--- NOTE | 2017-01-15 07:29 | Progress Note-Post Operative ---
Post-Operative Progess Note Surgeon (s)/Residential Sales Executive (s) Surgeon ALMA RIVERA MD Residential Sales Executive: Tomas Niño Pre-Operative Diagnosis right knee medial meniscal tear and chondromalacia Post-Operative Diagnosis right knee medial and lateral meniscal tears and chondromalacia of the medial femoral condyle, lateral tibial plateau and patella Procedure & Operative Findings Date of Procedure 01/15/17 Procedure Performed/Findings right knee arthroscopic partial medial and lateral meniscectomies and chondroplasty of the medial femoral condyle, lateral tibial plateau and patella Anesthesia Type GETA Estimated Blood Loss Estimated blood loss (mL): minimal Specimens/Packing Specimens Removed none Packing: none ALMA RIVERA MD Jan 15, 2017 07:29
[2017-01-15] MEDS ORDERED: HYDROcodone/APAP 7.5 MG/325 MG (LORTAB, LORCET PLUS) TABLET PO PRN (07:30)
[2017-01-15] MEDS ORDERED: FAMOTIDINE 20MG/2ML IV (PEPCID) ONE (07:40)
[2017-01-15] MEDS ORDERED: LACTATED RINGERS 1,000 ML IV PRN (07:43)
[2017-01-15] MEDS ORDERED: FAMOTIDINE 20MG/2ML IV (PEPCID) IV ONE (07:45)
[2017-01-15] MEDS ORDERED: BUPIVACAINE 0.25% 30 ML (SENSORCAINE) VIAL ONE (08:07)
[2017-01-15] MEDS ORDERED: morphine PF (DURAMORPH) 10 MG/10 ML AMP ONE (08:07)
[2017-01-15] MEDS ORDERED: morphine INJ 10 MG/ML 1ML (SYR OR VIAL) IVP PRN (09:15)
[2017-01-15] MEDS ORDERED: fentaNYL INJECTION 100 MCG/2 ML AMP IVP PRN (09:15)
[2017-01-15 09:45] VITALS: BP 135/63
[2017-01-15 10:15] VITALS: BP 137/67
[2017-01-15 11:00] VITALS: BP 137/67
--- NOTE | 2017-01-15 11:24 | Physical Therapy Ortho Eval ---
PT Orthopedic Evaluation Type of Surgery Knee Scope right knee scope following chronic progressive pain and loss of function Prior Level of Function Current Living Status: Spouse Locomotion (Upon Admit): Independent, Electric Wheelchair, Straight Cane, Front Wheeled Walker Established Durable Medical Eq: Shower Chair, Electric Scooter, Front Wheeled Walker Patient reports he has a fully handicap accessible home including a w/c ramp. He has several types of assistive devices that he uses for mobility, depending on how he feels. Subjective Subjective Elected to have knee surgery due to no improvement following conservative measures. Entry Into Home: Ramp Steps Accessories: Ramped Entrance Motor Control Motor Control: Motor Control WNL ROM ROM: WFL, except focal deficit right knee 80 degrees flexion, -8 degrees of full extension Strength Strength: Gen Weak,No Focal Deficit knee flexion and extension 4/5; fair isometric quad control Transfer Transfers (B, C, W/C) (FIM): 6 stand pivot with FWW and with hand held assist Gait Gait Assistive Device: FWW demonstrated steady gait with use of FWW Weight Bearing Restriction: Weight Bearing/Tolerated Distance: 50 ft Gait Level of Assist: 5 Treatment Rendered Treatment: Therapeutic Exercises, Gait Train, Step Train, Issued Written HEP Exercise Instruction: Quad Sets, Straight Leg Raise, Heel Slides Assessment/Goals Goal Time Frame: 1 Visit Understands HEP: Yes Safe Ambulation: Yes Plan Treatment Plan: Education, Gait, Safety, Therapeutic Exercise Treatment Duration: 1 visit Visits Per Week: 1 PT/Family Agrees to Plan: Yes Time Time In: 1050 Time Out: 1110 Total Billed Treatment Time: 20 Billed Treatment Time visit, leland low complexity 20 min Yes PT/OT Therapy GCodes Therapy Functional Limitation: Physical Therapy Functional Limitation-Current Charge Code: MOBCUR Modifier: CJ Functional Limitation-Goal Charge Code: MOBGOAL Modifier: CJ Functional Limitation-D/C Charge Codes: MOBDC Modifier: CHRISTIANO PERKINS PT Jan 15, 2017 11:24
--- NOTE | 2017-01-17 08:31 | OPERATIVE REPORT ---
PROCEDURE PHYSICIAN: ALMA RIVERA DATE OF PROCEDURE: 01/15/2017 PREOPERATIVE DIAGNOSES: 1. Right knee medial meniscal tear. 2. Right knee chondromalacia of the medial femoral condyle. 3. Right knee chondromalacia of the patella. POSTOPERATIVE DIAGNOSES: 1. Right knee medial meniscal tear. 2. Right knee lateral meniscal tear. 3. Right knee chondromalacia of the medial femoral condyle. 4. Right knee chondromalacia of lateral tibial plateau. 5. Right knee chondromalacia of the patella. PROCEDURES: 1. Right knee arthroscopic partial medial meniscectomy. 2. Right knee arthroscopic partial lateral meniscectomy. 3. Right knee arthroscopic chondroplasty of the medial femoral condyle. 4. Right knee arthroscopic chondroplasty of the lateral tibial plateau. 5. Left knee arthroscopic chondroplasty of the patella. SURGEON: Dr. Rivera PADDER: Tomas Niño who assisted throughout the procedure and closed the incisions. ANESTHESIA: General endotracheal by Lane Kincaid CRNA. TOURNIQUET TIME: Not applicable. ESTIMATED BLOOD LOSS: Minimal. DRAINS: None. COMPLICATIONS: None. POSTOPERATIVE PLAN: Routine arthroscopy protocol. The patient was transported to the recovery awake and in stable condition. STATEMENT OF MEDICAL NECESSITY: The patient is a 67 you gentleman with complaints of right medial knee pain, catching and locking and swelling, medial patellofemoral crepitus, tenderness along his medial joint line and pain medially with Jose's. The patient failed to respond to conservative measures and due to functional impairment, the patient elected to proceed with surgical intervention. Examination under anesthesia revealed range of motion of 0/0/130. No varus valgus laxity. Negative anterior and posterior drawer. Negative Joao. Negative pivot shift. Arthroscopic findings of the patella demonstrated grade 2 chondral flaps centrally in an 8 x 8 area. The trochlea demonstrated no gross chondral abnormalities and mediolateral gutters were clear. The lateral compartment demonstrated grade 4 chondral defect in the posterior lateral aspect of tibial plateau in a 5 x 8 area with surrounding grade 3 chondral flaps. The posterior horn of the lateral meniscus demonstrated a degenerative tear involving approximately 1/3rd of the posterior horn. The ACL and PCL were intact. The medial compartment demonstrated a horizontal cleavage tear of the posterior horn of the medial meniscus involving approximately one half the posterior horn. In addition there is grade 3 chondral flap of the central portion of the femoral condyle in a 10 x 10 area. PROCEDURE: After risks and benefits of the procedure were discussed and questions were answered an informed consent signed and placed on the chart. The operative site was confirmed in the preoperative holding and initialed by the surgeon. The patient was then transported to the operating room where after adequate levels of general endotracheal anesthetic were obtained, a timeout was called confirming the operative site. Examination under anesthesia was performed with the above findings noted. The right lower extremity was then prepped and draped in the usual sterile fashion. The knee joint was injected with 60 mL of fluid and a standard inferolateral portal was placed for the arthroscope and under direct visualization an inferior medial port was created. The menisci cruciate was carefully probed with the above findings noted. The unstable chondral flaps on the patella were debrided with a shaver back to a stable edge. The scope was then redirected into the medial compartment where the unstable chondral flaps on the medial femoral condyle were debrided with the shaved back to a stable edge and the posterior horn of the medial meniscus was debrided with the biter and shaver, removing approximately 1/3rd of the posterior horn. This was carefully probed with no further tearing or instability noted. The scope was redirected into the lateral compartment where the unstable chondral flaps on the lateral tibial plateau were debrided with shaved back to a stable edge and the posterior horn of the lateral meniscus was debrided with biter and shaver removing approximately 1/3rd of the posterior horn. This was carefully probed with no further tearing or instability noted. The knee was copiously irrigated. The port sites were closed with 3-0 nylon in simple interrupted fashion. The knee was injected with Duramorph. Port sites were infiltrated with plain Marcaine. A soft dressing was applied. The patient was transported to the recovery room awake and in stable condition. Job ID: [id number] Dictated Date: 01/15/2017 09:02:00 Chief Solution Architect Date: 01/17/2017 08:00:34 / garcía
== END 2017-01-15 11:00 | disposition home or self-care (01) ==
LOC: SDC 06:43
PROVIDERS: ATTEND Orthopaedic Surgery
DX: M23.8X1 Other internal derangements of right knee (principal); M22.41 Chondromalacia patellae, right knee; I48.91 Unspecified atrial fibrillation; I10 Essential (primary) hypertension; E11.9 Type 2 diabetes mellitus without complications; E78.5 Hyperlipidemia, unspecified; I25.10 Atherosclerotic heart disease of native coronary artery without angina pectoris; G20 Parkinson's disease; J44.9 Chronic obstructive pulmonary disease, unspecified; F41.9 Anxiety disorder, unspecified; F32.9 Major depressive disorder, single episode, unspecified; M81.0 Age-related osteoporosis without current pathological fracture; N40.0 Benign prostatic hyperplasia without lower urinary tract symptoms; G47.00 Insomnia, unspecified; F10.20 Alcohol dependence, uncomplicated; Z87.891 Personal history of nicotine dependence; Z95.0 Presence of cardiac pacemaker; Z95.5 Presence of coronary angioplasty implant and graft
CPT/HCPCS: 82962

== ENCOUNTER → 2017-08-21 | Outpatient (CLI) | payer MEDICARE ==
[~2017-08-21] MED LIST changes: +HYDR-34 PO; -HYDR-3816 PO; -METO-272 PO; +METO-370 PO; +METO50TA15 PO; -METO50TA2 PO; -NS (IVPB) 50 ML ONE; -ceFAZolin 1,000 MG (ANCEF) VIAL ONE
[2017-08-21 11:22] LABS: ALANINE AMINOTRANSFERASE 19 U/L (0-55); ALBUMIN 4.1 GM/DL (3.2-4.5); ALKALINE PHOSPHATASE 81 U/L (40-136); BILIRUBIN,TOTAL 0.6 MG/DL (0.1-1.0); BUN/CREATININE RATIO 15; CALCIUM 9.2 MG/DL (8.5-10.1); CARBON DIOXIDE 21 MMOL/L (21-32); CHLORIDE 108 MMOL/L (98-107); CHOLESTEROL 172 MG/DL (< 200); GFR ESTIMATED > 60; GLUCOSE 139 MG/DL (70-105); HDL CHOLESTEROL 45 MG/DL (40-60); POTASSIUM 4.1 MMOL/L (3.6-5.0); SODIUM 140 MMOL/L (135-145); TOTAL PROTEIN 6.5 GM/DL (6.4-8.2); TRIGLYCERIDES 121 MG/DL (<150); VLDL CHOLESTEROL 24 MG/DL (5-40)
== END ==
LOC: CARD 09:56
PROVIDERS: ATTEND Internal Medicine Cardiovascular Disease
DX: J44.9 Chronic obstructive pulmonary disease, unspecified (principal); I63.9 Cerebral infarction, unspecified; R07.89 Other chest pain; I51.9 Heart disease, unspecified; I10 Essential (primary) hypertension; E78.5 Hyperlipidemia, unspecified
CPT/HCPCS: 36415; 80053; 80061; 93306

== ENCOUNTER 2017-12-29 17:36 | Emergency (ER) | payer MEDICARE ==
[~2017-12-29] VITALS: Ht 172.7 cm; Wt 117.9 kg
[~2017-12-29 17:36] MED LIST changes: -METF500T4 PO; +METF500T5 PO
[2017-12-29] MEDS ORDERED: ASPIRIN 81 MG CHEW (CHILDREN'S ASA) PO ONE (18:00)
[2017-12-29] MEDS ORDERED: NITROGLYCERIN 0.4 MG SL TABS BTL 25'S SL PRN (18:00)
--- NOTE | 2017-12-29 18:03 | ED Cardiac General ---
History of Present Illness General Stated Complaint: HIGH BP Source: patient Exam Limitations: no limitations History of Present Illness Date Seen by Provider: Dec 29, 2017 Time Seen by Provider: 17:58 Initial Comments to ER per private vehicle with reports of high blood pressure. 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 He complains of some chest tightness but states that his chest has been tight since he was in his 20s though it is gradually getting worse over the past few months. He follows with Dr. Carmona.He is a former smoker having smoked for about 20 years but quit in the .He is obese, he has hypertension, diabetes , hyperlipidemia and known coronary artery disease. He states that his head has felt "spacey" for the past few days. Timing/Duration: changing over time, intermittent Severity: moderate Location: central Activities at Onset: none NTG SL WATER PIPE INSTALLER: No ASA po WATER PIPE INSTALLER: No Associated Systoms: Chest Pain; No Cough, No Fever/Chills Allergies and Home Medications Allergies Coded Allergies: No Known Drug Allergies (Unverified , 01/08/17) Home Medications Allopurinol 300 Mg Tab, 600 MG PO DAILY, (Reported) TAKES 2 (300MG) TABLETS Amitriptyline HCl 25 Mg Tablet, 25 MG PO BID, (Reported) Amlodipine Besylate 10 Mg Tablet, 10 MG PO DAILY, (Reported) Atorvastatin Calcium 20 Mg Tablet, 10 MG PO HS, (Reported) Budesonide/Formoterol Fumarate 10.2 Gm Hfa.aer.ad, 2 PUFF IH BID, (Reported) Bupropion HCl 75 Mg Tablet, 75 MG PO DAILY, (Reported) Calcium Carb & Cit/Vitamin D3 1 Each Tablet.er, 1 TAB PO DAILY, (Reported) Carbidopa/Levodopa 1 Each Tablet, 2 TAB PO TID, (Reported) Carvedilol 25 Mg Tablet, PO BID, (Reported) Cyanocobalamin (Vitamin B-12) 50 Mcg Tablet, 100 MCG PO DAILY, (Reported) Donepezil HCl 10 Mg Tablet, 10 MG PO DAILY, (Reported) Doxazosin Mesylate 8 Mg Tablet, 8 MG PO HS, (Reported) Fluoxetine Hcl 20 Mg Capsule, 40 MG PO DAILY, (Reported) TAKES 2 (20MG) CAPSULES Furosemide 20 Mg Tablet, 20 MG PO DAILY, (Reported) Hydroxychloroquine Sulfate 200 Mg Tablet, 200 MG PO BID, (Reported) Ipratropium/Albuterol Sulfate 14.7 Gm Aer.w.adap, 2 PUFF IH Q6H PRN for SHORTNESS OF BREATH, (Reported) Isosorbide Mononitrate 60 Mg Tab, 60 MG PO DAILY, (Reported) Lisinopril 10 Mg Tablet, 10 MG PO DAILY, (Reported) Metformin HCl 500 Mg Tablet, 500 MG PO BID, (Reported) [place] 3 Polyunsat Fatty Acids 1,000 Mg Cap, 1,000 MG PO DAILY, (Reported) Ondansetron 8 Mg Tab.rapdis, 8 MG PO DAILY, (Reported) Pantoprazole Sodium 40 Mg Tablet.dr, 40 MG PO DAILY, (Reported) Potassium Chloride 20 Meq Tab.er.prt, 10 MEQ PO DAILY, (Reported) Ropinirole Hcl 2 Mg Tablet, 2 MG PO TID, (Reported) 2MG IN AM, 4MG AT HS Trazodone Hcl 100 Mg Tab, 100 MG PO HS, (Reported) Zolpidem Tartrate 10 Mg Tab, 10 MG PO HS, (Reported) Patient Home Medication List Home Medication List Reviewed: Yes Review of Systems Constitutional: see HPI EENTM: No Symptoms Reported Respiratory: See HPI; Denies Cough, Denies Shortness of Air, Denies SOA With Exertion, Denies SOA at Rest, Denies Stridor, Denies Wheezing Cardiovascular: See HPI, Chest Pain; Denies Edema Gastrointestinal: See HPI Genitourinary: No Symptoms Reported Musculoskeletal: no symptoms reported Skin: no symptoms reported Psychiatric/Neurological: No Symptoms Reported Past Eyvikzj-Bbsxpi-Wdmbry Hx Patient Social History Type Used: Cigarettes Former Smoker, Quit: Jan 08, 2002 Recent Foreign Travel: No Contact w/Someone Who Travel: No Recent Hopitalizations: No Immunizations Up To Date Date of Pneumonia Vaccine: Mar 02, 2015 Date of Influenza Vaccine: Apr 01, 2016 Seasonal Allergies Seasonal Allergies: No Past Medical History Cardiac, Coronary Stent, Eye Surgery, Vascular Surgery Sleep Apnea, COPD Currently Using CPAP: Yes Coronary Artery Disease, High Cholesterol, Hypertension, Irregular Heartbeat, Peripheral Vascular Dementia, Neuropathy, Parkinson's Disease, Stroke Reproductive Disorders: No Sexually Transmitted Disease: No HIV/AIDS: No Prostate Problems Gastroesophageal Reflux Osteoporosis, Arthritis, Gout Diabetes, Non-Insulin dep Cataract Loss of Vision: Bilateral Hearing Impairment: Denies Anxiety, PTSD, Bipolar, Depression Adverse Reaction/Blood Tranf: No (N/A) Family Medical History Abdominal aortic aneurysm G8 BROTHER Cardiovascular disease 19 FATHER 19 MOTHER G8 BROTHER Cataracts 19 FATHER Completed stroke 19 FATHER Deafness or hearing loss 19 FATHER Diabetes mellitus 19 FATHER 19 MOTHER Drug abuse G8 BROTHER G8 BROTHER Hypercholesterolemia G8 BROTHER Hypertension 19 FATHER 19 MOTHER Myocardial infarction 19 FATHER 19 MOTHER Heart Disease, Diabetes, Hypertension, Stroke Physical Exam Vital Signs Vital Signs - First Documented 12/29/17 17:49 Temp 97.4 Pulse 78 Resp 22 B/P (MAP) 186/105 (132) O2 Delivery Room Air Capillary Refill : Height, Weight, BMI Height: 6', 0.00" Weight: 270lbs 7.0oz, [id number] Method:Stated ,36.7BMI General Appearance: No Apparent Distress, WD/WN, Obese HEENT: PERRL/EOMI, TMs Normal Neck: Full Range of Motion, Normal Inspection Respiratory: No Accessory Muscle Use, No Respiratory Distress Cardiovascular: Regular Rate, Rhythm, No Edema, Normal Peripheral Pulses Gastrointestinal: Non Tender, Soft Extremity: Normal Capillary Refill, Normal Inspection Neurologic/Psychiatric: Alert, Oriented x3 Skin: Normal Color, Warm/Dry Progress/Results/Core Measures Results/Orders Lab Results Laboratory Tests Test 12/29/17 17:55 Range/Units White Blood Count 5.9 4.3-11.0 10^3/uL Red Blood Count 4.55 4.35-5.85 10^6/uL Hemoglobin 12.9 L 13.3-17.7 G/DL Hematocrit 37 L 40-54 % Mean Corpuscular Volume 82 80-99 FL Mean Corpuscular Hemoglobin 28 25-34 PG Mean Corpuscular Hemoglobin Concent 35 32-36 G/DL Red Cell Distribution Width 15.3 H 10.0-14.5 % Platelet Count 214 130-400 10^3/uL Mean Platelet Volume 9.4 7.4-10.4 FL Neutrophils (%) (Auto) 68 42-75 % Lymphocytes (%) (Auto) 18 12-44 % Monocytes (%) (Auto) 9 0-12 % Eosinophils (%) (Auto) 4 0-10 % Basophils (%) (Auto) 1 0-10 % Neutrophils # (Auto) 4.0 1.8-7.8 X 10^3 Lymphocytes # (Auto) 1.1 1.0-4.0 X 10^3 Monocytes # (Auto) 0.5 0.0-1.0 X 10^3 Eosinophils # (Auto) 0.3 0.0-0.3 10^3/uL Basophils # (Auto) 0.0 0.0-0.1 10^3/uL Sodium Level 141 135-145 MMOL/L Potassium Level 3.9 3.6-5.0 MMOL/L Chloride Level 111 H 98-107 MMOL/L Carbon Dioxide Level 21 21-32 MMOL/L Anion Gap 9 5-14 MMOL/L Blood Urea Nitrogen 18 7-18 MG/DL Creatinine 0.83 0.60-1.30 MG/DL Estimat Glomerular Filtration Rate > 60 BUN/Creatinine Ratio 22 Glucose Level 107 H 70-105 MG/DL Calcium Level 9.0 8.5-10.1 MG/DL Magnesium Level 1.5 L 1.8-2.4 MG/DL Troponin I < 0.30 <0.30 NG/ML B-Type Natriuretic Peptide 125.4 H <100.0 PG/ML My Orders Orders - MAUREEN MAKI APRN Cbc With Automated Diff (12/29/17 17:40) Basic Metabolic Panel (12/29/17 17:40) Troponin I (12/29/17 17:40) Ekg Tracing (12/29/17 17:40) Chest 1 View, Ap/Pa Only (12/29/17 17:40) Iv Heplock-Insert (Order) (12/29/17 17:40) Aspirin Chewable Tablet (Baby Aspirin Ch (12/29/17 18:00) Nitroglycerin 0.4 Mg Btl 25's (Nitrostat (12/29/17 18:00) Magnesium (12/29/17 17:57) Clonidine Tablet (Catapres Tablet) (12/29/17 18:30) Magnesium Oxide Tablet (Mag Ox Tablet) (12/29/17 18:45) BNP (12/29/17 18:45) Lisinopril Tablet (Zestril Tablet) (12/29/17 19:30) Medications Given in ED Current Medications Medications Dose Ordered Sig/Albaro Route Start Time Stop Time Status Last Admin Dose Admin Aspirin 324 mg ONCE ONCE PO 12/29/17 18:00 12/29/17 18:01 DC 12/29/17 18:21 324 MG Clonidine HCl 0.1 mg ONCE ONCE PO 12/29/17 18:30 12/29/17 18:31 DC 12/29/17 18:34 0.1 MG Magnesium Oxide 400 mg ONCE ONCE PO 12/29/17 18:45 12/29/17 18:46 DC 12/29/17 18:48 400 MG Nitroglycerin 1 TAB Q 5 MIN X 3 NEEDED PRN SL 12/29/17 18:00 12/29/17 18:21 0.4 MG Vital Signs/I&O 12/29/17 17:49 Temp 97.4 Pulse 78 Resp 22 B/P (MAP) 186/105 (132) O2 Delivery Room Air Diagnostic Imaging Diagonstic Imaging: Xray Plain Films/CT/US/NM/MRI: chest Comments NAME: DOYLE CARTER MED REC#: [id number] PT STATUS: REG ER : 1950 PHYSICIAN: MAUREEN MAKI ASSISTANT PASSENGER LOCOMOTIVE ENGINEER ADMIT DATE: 12/29/17/ER Draft Date of Exam:12/29/17 CHEST 1 VIEW, AP/PA ONLY EXAMINATION: Chest radiograph, portable AP view. DATE: 12/29/2017 at 1824 hours. INDICATION: 67-year-old male, hypertension. COMPARISON: 12/28/2016. FINDINGS: There is a left-sided cardiac assist device with right atrial and right ventricular leads. The leads appear intact. Heart size and mediastinal contours are unchanged. There is no identified pneumothorax. There is no large pleural effusion. There are bilateral predominantly interstitial opacities which do appear similar to the comparison exam. There is no interval focal airspace consolidation. IMPRESSION: 1. Persistent cardiomegaly without interval acute cardiopulmonary abnormality. Dictated on workstation # [id number] Dict: 12/29/17 1845 Trans: 12/29/17 1853 SALLIE [id number] Interpreted by: EVER SELLERS MD Electronically signed by: Departure Communication (Admissions) 1-patient was given one sublingual nitroglycerin with reduction in pain from 3 out of 10 to 1 out of 10. He is already on Imdur at home.Despite ggreater than 6 hours (he's had this for 20 years) of chest tightness is cardiac markers are negative, So I'm comfortable saying that we've ruled out acute coronary syndrome. Blood pressure is still 184/94.This is about an hour after receiving clonidine 0.1 mg.He states that he was taken off of his lisinopril 20 mg tablets 4 reason unknown to him about 6 months ago. Give him a dose of lisinopril here 20 mg and then have him follow-up with Dr. Carmona. Impression Primary Impression: Hypertension Additional Impression: Chest pain Disposition: HOME, SELF-CARE Condition: Stable Departure-Patient Inst. Decision time for Depature: 19:16 Referrals: TIN YOU MD (PCP) Primary Care Physician COLLIN SHIPLEY MD (Family) Primary Care Physician Patient Instructions: Chest Pain (DC) Add. Discharge Instructions: 1. return to er for any concerns 2. FOllow up with Dr Carmona THIS WEEK. Call tomorrow for an appointment. Copy Copies To 1: MARY CARMONA MD, PETER J APRN Dec 29, 2017 18:03
[2017-12-29 18:16] LABS: BASOPHILS % (AUTO) 1 % (0-10); EOSINOPHILS # (AUTO) 0.3 10^3/uL (0.0-0.3); EOSINOPHILS % (AUTO) 4 % (0-10); HEMATOCRIT 37 % (40-54); HEMOGLOBIN 12.9 G/DL (13.3-17.7); LYMPHOCYTES # (AUTO) 1.1 X 10^3 (1.0-4.0); LYMPHOCYTES % (AUTO) 18 % (12-44); MEAN CORPUSCULAR HEMOGLOBIN 28 PG (25-34); MEAN CORPUSCULAR HGB CONC 35 G/DL (32-36); MEAN CORPUSCULAR VOLUME 82 FL (80-99); MEAN PLATELET VOLUME 9.4 FL (7.4-10.4); MONOCYTES # (AUTO) 0.5 X 10^3 (0.0-1.0); MONOCYTES % (AUTO) 9 % (0-12); NEUTROPHILS % (AUTO) 68 % (42-75); PLATELET COUNT 214 10^3/uL (130-400); RED BLOOD COUNT 4.55 10^6/uL (4.35-5.85); RED CELL DISTRIBUTION WIDTH 15.3 % (10.0-14.5); WHITE BLOOD COUNT 5.9 10^3/uL (4.3-11.0)
[2017-12-29 18:30] LABS: BUN/CREATININE RATIO 22; CARBON DIOXIDE 21 MMOL/L (21-32); CHLORIDE 111 MMOL/L (98-107); CREATININE SERUM 0.83 MG/DL (0.60-1.30); GFR ESTIMATED > 60; GLUCOSE 107 MG/DL (70-105); MAGNESIUM 1.5 MG/DL (1.8-2.4); POTASSIUM 3.9 MMOL/L (3.6-5.0); SODIUM 141 MMOL/L (135-145)
[2017-12-29] MEDS ORDERED: cloNIDine 0.1 MG (CATAPRES) TAB PO ONE (18:30)
[2017-12-29] MEDS ORDERED: MAGNESIUM OXIDE (MAG-OX)400 MG TAB PO ONE (18:45)
--- NOTE | 2017-12-29 18:53 | Diagnostic Imaging Report ---
EXAMINATION: Chest radiograph, portable AP view. DATE: 12/29/2017 at 1824 hours. INDICATION: 67-year-old male, hypertension. COMPARISON: 12/28/2016. FINDINGS: There is a left-sided cardiac assist device with right atrial and right ventricular leads. The leads appear intact. Heart size and mediastinal contours are unchanged. There is no identified pneumothorax. There is no large pleural effusion. There are bilateral predominantly interstitial opacities which do appear similar to the comparison exam. There is no interval focal airspace consolidation. IMPRESSION: 1. Persistent cardiomegaly without interval acute cardiopulmonary abnormality. Dictated by: Dictated on workstation # [id number]
[2017-12-29] MEDS ORDERED: lisINopril 20 MG (PRINIVIL) TABLET PO ONE (19:30)
[2017-12-29 19:43] VITALS: BP 182/97
== END 2017-12-29 19:43 | disposition home or self-care (01) ==
LOC: EDUNIT# 17:36 → ER 17:37
DX: I10 Essential (primary) hypertension (principal); R07.9 Chest pain, unspecified; J44.9 Chronic obstructive pulmonary disease, unspecified; G47.30 Sleep apnea, unspecified; I25.10 Atherosclerotic heart disease of native coronary artery without angina pectoris; E78.00 Pure hypercholesterolemia, unspecified; K21.9 Gastro-esophageal reflux disease without esophagitis; M10.9 Gout, unspecified; E11.40 Type 2 diabetes mellitus with diabetic neuropathy, unspecified; F41.9 Anxiety disorder, unspecified; F31.9 Bipolar disorder, unspecified; F43.10 Post-traumatic stress disorder, unspecified; E66.9 Obesity, unspecified; E78.5 Hyperlipidemia, unspecified; G20 Parkinson's disease; Z87.891 Personal history of nicotine dependence; Z86.73 Personal history of transient ischemic attack (TIA), and cerebral infarction without residual deficits; Z79.84 Long term (current) use of oral hypoglycemic drugs
CPT/HCPCS: 36415; 71045; 80048; 83735; 83880; 84484; 85025; 93005

== ENCOUNTER 2019-07-05 11:03 | Inpatient (IN) | payer OTHER, MEDICARE ==
[~2019-07-05] VITALS: Ht 172.7 cm; Wt 125.7 kg
[~2019-07-05 11:03] MED LIST changes: -AMLO10TA2 PO; +AMLO10TA7 PO; +METF-397 PO; +METF-398 PO; -METF500T5 PO; -METF850T2 PO; -METO-370 PO; +METO50TA7 PO; -NORT10CA PO; +NRT10C PO; +SIMV20TA26 PO; -SIMV20TA3 PO; -TAMS0.4C98 PO
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
[2019-07-05 11:34] LABS: BASOPHILS % (AUTO) 0 % (0-10); EOSINOPHILS % (AUTO) 0 % (0-10); HEMATOCRIT 36 % (40-54); HEMOGLOBIN 12.7 G/DL (13.3-17.7); LYMPHOCYTES # (AUTO) 0.6 X 10^3 (1.0-4.0); LYMPHOCYTES % (AUTO) 5 % (12-44); MEAN CORPUSCULAR HEMOGLOBIN 29 PG (25-34); MEAN CORPUSCULAR HGB CONC 35 G/DL (32-36); MEAN CORPUSCULAR VOLUME 82 FL (80-99); MEAN PLATELET VOLUME 9.3 FL (7.4-10.4); MONOCYTES # (AUTO) 1.1 X 10^3 (0.0-1.0); MONOCYTES % (AUTO) 9 % (0-12); NEUTROPHILS # (AUTO) 9.8 X 10^3 (1.8-7.8); NEUTROPHILS % (AUTO) 85 % (42-75); PLATELET COUNT 284 10^3/uL (130-400); RED CELL DISTRIBUTION WIDTH 15.6 % (10.0-14.5); WHITE BLOOD COUNT 11.6 10^3/uL (4.3-11.0)
[2019-07-05 11:56] LABS: ALANINE AMINOTRANSFERASE < 6 U/L (0-55); ALBUMIN 3.7 GM/DL (3.2-4.5); ALKALINE PHOSPHATASE 107 U/L (40-136); BILIRUBIN,TOTAL 0.9 MG/DL (0.1-1.0); BUN/CREATININE RATIO 7; CALCIUM 9.6 MG/DL (8.5-10.1); CARBON DIOXIDE 23 MMOL/L (21-32); CHLORIDE 90 MMOL/L (98-107); CREATININE SERUM 1.82 MG/DL (0.60-1.30); GFR ESTIMATED 37; GLUCOSE 338 MG/DL (70-105); POTASSIUM 3.7 MMOL/L (3.6-5.0); SODIUM 127 MMOL/L (135-145); TOTAL PROTEIN 7.5 GM/DL (6.4-8.2)
--- NOTE | 2019-07-05 11:57 | Diagnostic Imaging Report ---
EXAMINATION: Chest 2 view HISTORY: Shortness of breath. COMPARISON: 12/29/2017 FINDINGS: A left pectoral dual-chamber pacemaker is in place. Consolidative opacities are seen in the right upper lobe. No large pleural effusion or pneumothorax. Stable mildly prominent cardiac silhouette. No overt pulmonary edema. The included osseous structures are unremarkable. IMPRESSION: 1. Consolidative opacities in the right upper lobe, concerning for pneumonia. Dictated by: Dictated on workstation # [id number]
[2019-07-05] MEDS ORDERED: NS IV 500 ML 500 ML IV SCH (12:15)
[2019-07-05] MEDS ORDERED: CEFEPIME INJECTION 2,000 MG in WATER (STERILE) FOR INJECTION 20 ML IV ONE (12:15)
[2019-07-05 12:52] LABS: ANISOCYTOSIS SLIGHT; BAND NEUTROPHILS 4 %; BASOPHILS % (MANUAL) 0 %; EOSINOPHILS % (MANUAL) 2 %; LYMPHOCYTES % (MANUAL) 6 %; MONOCYTES % (MANUAL) 8 %; NEUTROPHILS % (MANUAL) 80 %; TOXIC GRANULATION/VACUOLAZATIO 1+
--- NOTE | 2019-07-05 14:10 | NUR ---
DOYLE CARTER admitted to room 430-1, with an admitting diagnosis of pneumonia, copd, Acute Kidney Injury, on 07/05/19 from emergency department via w/c, accompanied by debbie damon. DOYLE CARTER introduced to surroundings, call light, bed controls, phone, TV, temperature control, lights, meal times, smoking policy, visitor policy, side rail policy, bathrooms and showers. Patient Rights given to patient in the handbook. DOYLE CARTER verbalizes understanding that [facility] is not responsible for the loss or damage to any personal effects or valuables that are kept in the patients posession during their hospitalization. DOYLE CARTER verbalizes understanding of Interdisciplinary Patient Education. Patient and/or family were informed about the Rapid Response Team and its purpose.
[2019-07-05 14:11] VITALS: BP 116/71
[2019-07-05] MEDS ORDERED: CATHETER FLUSH 10 ML SYR IV PRN (14:30)
[2019-07-05] MEDS ORDERED: DULO60CA59 PO (15:10)
[2019-07-05] MEDS ORDERED: ROPI2TAB4 PO (15:10)
[2019-07-05] MEDS ORDERED: FINA5TAB PO (15:10)
[2019-07-05] MEDS ORDERED: AMIT50TA3 PO (15:10)
[2019-07-05] MEDS ORDERED: ASPI-983 PO (15:10)
[2019-07-05] MEDS ORDERED: METF-478 PO (15:10)
[2019-07-05] MEDS ORDERED: ROSU40TA23 PO (15:10)
[2019-07-05] MEDS ORDERED: CARB1TAB6 PO (15:10)
[2019-07-05] MEDS ORDERED: ZOLP6.2525 PO (15:10)
[2019-07-05] MEDS ORDERED: METO5TAB6 PO (15:10)
[2019-07-05] MEDS ORDERED: TIOT18CA2 IH (15:10)
[2019-07-05] MEDS ORDERED: ALLO300T2 PO (15:10)
[2019-07-05] MEDS ORDERED: SPIR25TA PO (15:10)
[2019-07-05] MEDS ORDERED: METO-310 PO (15:10)
[2019-07-05] MEDS ORDERED: POTA-51 PO (15:10)
[2019-07-05] MEDS ORDERED: RT-ALBUINH IH (15:15)
[2019-07-05] MEDS: NS IV 1000 ML 1,000 ML IV SCH (15:23)
[2019-07-05] MEDS ORDERED: METF-397 PO (15:28)
[2019-07-05] MEDS ORDERED: ROSU20TA32 PO (15:28)
[2019-07-05] MEDS ORDERED: C250T PO (15:28)
[2019-07-05] MEDS ORDERED: MULT-974 PO (15:28)
[2019-07-05] MEDS ORDERED: TORS20TA3 PO (15:28)
--- NOTE | 2019-07-05 15:31 | NUR ---
SPOKE WITH THE PT (HE HAD A MED LIST FROM [facility]) WELL SPEAKING WITH THE [facility] TO COMPLETE THE MED REC. PT WAS ABLE TO TELL ME HOW/WHEN HE TAKES EACH MEDICATION. SYMBICORT: DIRECTIONS ARE " 2 PUFFS BID" HOWEVER THE PT ONLY USES ONCE DAILY METFORMIN: ON THE MEDICATION LIST SHEET FROM [facility] IT LISTS METFORMIN ER 500MG, WHEN I ASKED THE PT HE DID NOT THINK HE WAS USING THE ER TAB. [facility]IRMED HE ONLY HAS A SCRIPT FOR THE PLAIN METFORMIN 500MG. METOCLOPRAMIDE: THE DIRECTIONS ARE " 1 QID BEFORE MEALS AND HS" HOWEVER THE PT TAKE 2 TABS BID TO EQUAL THE 4 TABS DAILY HE IS PRESCRIBED. ROSUVASTATIN: ON THE MED LIST SHEET FROM [facility] THIS IS LISTED A 40MG, HOWEVER THE MOST RECENT SCRIPT THEY HAVE FILLED WAS THE 20MG AND THE 40MG LOOKS TO BE AN OLD RX [facility] LISTED A COUPLE MEDS THAT THE PT SAYS HE NO LONGER TAKES, THEY ARE: PROTONIX, LISINOPRIL, AMLODIPINE, AND CYPROHEPTADINE. THE FOLLOWING ARE FILL DATES FROM THE [place]: 04-15-2019 AMITRIPTYLINE #90/90DS 04-17-2019 ASPIRIN #90/90DS 04-19-2019 DOXAZOSIN #90/90DS 04-19-2019 METFORMIN #90/90DS 04-22-2019 SPIRIVA #3/90DS 04-27-2019 DONEPEZIL #30/30DS 04-29-2019 ALLOPURINOL #180/90DS 05-04-2019 DULOXETINE #90/90DS 05-25-2019 SYMBICORT #3/90DS 05-25-2019 ROSUVASTATIN #90/90DS 05-25-2019 FINASTERIDE #90/90DS 06-01-2019 CARVEDILOL #180/90DS 06-09-2019 CARB/LEVO #180/30DS 06-10-2019 TORSEMIDE #30/30DS 06-14-2019 ROPINIROLE #90/30DS 06-14-2019 SPIRONOLACTONE #30/30DS 06-28-2019 METOLAZONE #30/30DS 06-28-2019 POTASSIUM #60/30DS 06-29-2019 ZOLPIDEM #30/30DS OTC MEDS: MTC VIT C Addendum: 07/05/19 at 1555 by ELYSSA IBRAHIM CPhT METOCLOPRAMIDE LAST FILLED 03-12-2019 #120
[2019-07-05 15:37] VITALS: BP 111/70
--- NOTE | 2019-07-05 15:40 | History & Physical-Hospitalist ---
History of Present Illness HPI/Chief Complaint Patient is a 69-year-old male with a past medical history of uza-esjmcwl-jdjnllzhl diabetes hypertension and COPD who presented to the emergency department with a 3 week history of cough. He reports that he has had cough and mild shortness of breath worsening over the past 3-4 weeks. He states that it is worse at night. When also complains of some nasal congestion and head pressure. He developed right shoulder pain as well as his symptoms progressed. He denies any fever but has had chills. He hasn't had a decreased appetite. He also thinks that his is been sick. In the emergency room a chest x-ray was done which revealed a right upper lobe pneumonia. His lactic acid was elevated that he met no other sepsis criteria. He was also found to have a mild YARITZA. He is admitted for IV anabiotic and fluids. Source: patient Date Seen 07/05/19 Time Seen by a Provider: 15:35 Attending Physician Richard Paulino MD PCP Sarah Sharma MD Referring Physician Date of Admission Jul 05, 2019 at 13:56 Home Medications & Allergies Home Medications Reviewed patient Home Medication Reconciliation performed by pharmacy medication reconciliations insulator technician and/or nursing. Patients Allergies have been reviewed. Allergies Allergies Coded Allergies No Known Drug Allergies (Unverified01/08/17) Past Wjuhxkq-Uiyqts-Ufsdxi Hx Past Med/Social Hx: Reviewed Nursing Past Med/Soc Hx Patient Social History Marrital Status: Alcohol Use: Denies Use Recreational Drug Use: No Smoking Status: Former Smoker Former Smoker, Quit: Jan 08, 2002 Type Used: Cigarettes 2nd Hand Smoke Exposure: No Recent Foreign Travel: No Contact w/other who traveled: No Recent Hopitalizations: No Recent Infectious Disease Expo: No Immunizations Up To Date Date of Pneumonia Vaccine: Mar 02, 2015 Date of Influenza Vaccine: Apr 01, 2016 Seasonal Allergies Seasonal Allergies: No Past Medical History Surgeries: Cardiac, Coronary Stent, Eye Surgery, Vascular Surgery Currently Using CPAP: Yes Cardiac: Coronary Artery Disease, High Cholesterol, Hypertension, Irregular Heartbeat, Peripheral Vascular Neurological: Dementia, Neuropathy, Parkinson's Disease, Stroke Reproductive: No Sexually Transmitted Disease: No HIV/AIDS: No Genitourinary: Prostate Problems Gastrointestinal: Gastroesophageal Reflux Musculoskeletal: Osteoporosis, Arthritis, Gout Endocrine: Diabetes, Non-Insulin dep HEENT: Cataract Loss of Vision: Bilateral Hearing Impairment: Denies Psychosocial: Anxiety, PTSD, Bipolar, Depression History of Blood Disorders: No Adverse Reaction to Blood Alcantar: No (N/A) Family History Abdominal aortic aneurysm G8 BROTHER Cardiovascular disease 19 FATHER 19 MOTHER G8 BROTHER Cataracts 19 FATHER Completed stroke 19 FATHER Deafness or hearing loss 19 FATHER Diabetes mellitus 19 FATHER 19 MOTHER Drug abuse G8 BROTHER G8 BROTHER Hypercholesterolemia G8 BROTHER Hypertension 19 FATHER 19 MOTHER Myocardial infarction 19 FATHER 19 MOTHER Heart Disease, Diabetes, Hypertension, Stroke Review of Systems Constitutional: see HPI, chills; No fever EENTM: no symptoms reported Respiratory: see HPI, cough; No phlegm; short of breath Cardiovascular: no symptoms reported Gastrointestinal: No constipation, No diarrhea; loss of appetite; No nausea, No vomiting Genitourinary: no symptoms reported Musculoskeletal: no symptoms reported Skin: no symptoms reported Psychiatric/Neurological: No Symptoms Reported Physical Exam Physical Exam Vital Signs Vital Signs - First Documented 07/05/19 07/05/19 11:04 15:37 Temp 36.8 Pulse 70 Resp 20 B/P (MAP) 111/70 (84) Pulse Ox 94 O2 Delivery Room Air FiO2 21 Capillary Refill : Less Than 3 Seconds Height, Weight, BMI Height: 5'8.00" Weight: 260lbs. 7.0oz. 117.935129lp; 42.11 BMI Method:Stated General Appearance: No Apparent Distress, Obese HEENT: Moist Mucous Membranes; No Scleral Icterus (L), No Scleral Icterus (R) Neck: Full Range of Motion, Other (obscured by grover) Respiratory: No Accessory Muscle Use, No Respiratory Distress, Decreased Breath Sounds (RUL) Cardiovascular: Regular Rate, Rhythm, No Murmur Gastrointestinal: Normal Bowel Sounds, Non Tender, Soft Extremity: No Calf Tenderness, No Pedal Edema Neurologic/Psychiatric: Alert, Oriented x3, Normal Mood/Affect Skin: Normal Color, Warm/Dry Results Results/Procedures Labs Laboratory Tests 07/05/19 11:25 07/06/19 05:29 Patient resulted labs reviewed. Imaging: Reviewed Imaging Films, Reviewed Imaging Report Assessment/Plan Admission Diagnosis CAP Admission Status: Inpatient Order (span 2 midnights) Reason for Inpatient Admission: Yaritza, needs, IV abx, lactic acid elevated Assessment and Plan CAP Does not have sepsis Continue Cefepime Await cultures MAT rpotcol YARITZA hold nephrotoxic drugs and diuretics IVF, trend HTN CHF a-fib Follows with cardiology in [place] has pacemaker, not on anticoagulation NIDDMI SSI Hold home metformin due to lactic acidosis Parkinson's Disease Denies history but on Sinemet as an outpatient Diagnosis/Problems Diagnosis/Problems (1) Pneumonia Status: Acute Qualifiers: Pneumonia type: due to unspecified organism Laterality: right Lung location: upper lobe of lung Qualified Codes: J18.1 - Lobar pneumonia, unspecified organism (2) Acute kidney injury Status: Acute (3) COPD (chronic obstructive pulmonary disease) Status: Acute RICHARD PAULINO MD Jul 05, 2019 15:40
[2019-07-05] MEDS ORDERED: METOLAZONE 5 MG (ZAROXOLYN) TAB PO PRN (15:45)
[2019-07-05 16:00] VITALS: BP 119/73
[2019-07-05] MEDS ORDERED: RT-ALBUTEROL/IPRATROPIUM 3 ML (DUONEB) VIAL INH PRN (16:00)
[2019-07-05] MEDS: SINEMET 25/100 (CARBIDOPA/LEVODOPA) TAB PO SCH (16:21)
[2019-07-05] MEDS: inSUlin ASPART (NovoLOG) 1 UNIT/0.01 ML (CHARGE PER UNIT) SC SCH ×2 (16:21→21:44)
[2019-07-05] MEDS: RT-ALBUTEROL/IPRATROPIUM 3 ML (DUONEB) VIAL INH SCH ×2 (19:05→21:54)
[2019-07-05 20:00] VITALS: BP 127/59
[2019-07-05] MEDS ORDERED: ROPINIROLE HCL 6 MG PO SCH (21:00)
[2019-07-05] MEDS ORDERED: NON-FORMULARY MEDICATION 1 EA EA (Carvedilol 25 MG) PO SCH (21:00)
[2019-07-05] MEDS: AMITRIPTYLINE 50 MG (ELAVIL) TAB PO SCH (21:42)
[2019-07-05] MEDS: DONEPEZIL 10 MG (ARICEPT) TAB PO SCH (21:43)
[2019-07-05] MEDS: CARVEDILOL 12.5 MG (COREG) TABLET PO SCH (21:43)
[2019-07-05] MEDS: rOPINIRole 1 MG (REQUIP) TABLET PO SCH (21:43)
[2019-07-05] MEDS: ZOLPIDEM 5 MG (AMBIEN) TAB PO SCH (21:43)
[2019-07-05] MEDS: ROSUVASTATIN 20 MG (CRESTOR) TABLET PO SCH (21:43)
[2019-07-05] MEDS: METOCLOPRAMIDE 10 MG (REGLAN) TAB PO SCH (21:43)
[2019-07-05] MEDS: ALLOPURINOL 300 MG (ZYLOPRIM) TAB PO SCH (21:48)
[2019-07-06 00:15] VITALS: BP 166/74
[2019-07-06] MEDS: ACETAMINOPHEN 325 MG TABLET PO PRN ×2 (00:20→16:30)
[2019-07-06] MEDS: RT-ALBUTEROL/IPRATROPIUM 3 ML (DUONEB) VIAL INH SCH ×6 (01:44→21:59)
[2019-07-06] MEDS: NS IV 1000 ML 1,000 ML IV SCH ×2 (02:01→08:18)
[2019-07-06 04:30] VITALS: BP 144/79
[2019-07-06 05:35] LABS: BASOPHILS % (AUTO) 0 % (0-10); EOSINOPHILS % (AUTO) 0 % (0-10); HEMATOCRIT 32 % (40-54); HEMOGLOBIN 11.1 G/DL (13.3-17.7); LYMPHOCYTES % (AUTO) 8 % (12-44); MEAN CORPUSCULAR HEMOGLOBIN 28 PG (25-34); MEAN CORPUSCULAR HGB CONC 35 G/DL (32-36); MEAN CORPUSCULAR VOLUME 81 FL (80-99); MEAN PLATELET VOLUME 8.7 FL (7.4-10.4); MONOCYTES # (AUTO) 1.2 X 10^3 (0.0-1.0); MONOCYTES % (AUTO) 11 % (0-12); NEUTROPHILS # (AUTO) 9.1 X 10^3 (1.8-7.8); NEUTROPHILS % (AUTO) 80 % (42-75); PLATELET COUNT 261 10^3/uL (130-400); RED CELL DISTRIBUTION WIDTH 15.6 % (10.0-14.5); WHITE BLOOD COUNT 11.4 10^3/uL (4.3-11.0)
[2019-07-06 05:54] LABS: ALBUMIN 3.5 GM/DL (3.2-4.5); BILIRUBIN,TOTAL 0.6 MG/DL (0.1-1.0); CALCIUM 9.2 MG/DL (8.5-10.1); CREATININE SERUM 1.78 MG/DL (0.60-1.30); POTASSIUM 3.2 MMOL/L (3.6-5.0); TOTAL PROTEIN 7.1 GM/DL (6.4-8.2)
[2019-07-06] MEDS: inSUlin ASPART (NovoLOG) 1 UNIT/0.01 ML (CHARGE PER UNIT) SC SCH ×4 (06:22→21:00)
[2019-07-06] MEDS: SINEMET 25/100 (CARBIDOPA/LEVODOPA) TAB PO SCH ×2 (06:23→16:30)
[2019-07-06 07:58] VITALS: BP 100/55
[2019-07-06] MEDS: RT-ADVAIR HFA 115/21 MCG PER PUFF IH SCH ×2 (08:16→19:30)
[2019-07-06] MEDS: UMECLIDINIUM BROMIDE (INCRUSE ELLIPTA) 7'S IH SCH (08:16)
[2019-07-06] MEDS: ASPIRIN E.C. 81 MG (ECOTRIN) TAB PO SCH (08:18)
[2019-07-06] MEDS: CARVEDILOL 12.5 MG (COREG) TABLET PO SCH ×2 (08:18→21:00)
[2019-07-06] MEDS: doxAzosin 4 MG (CARDURA) TAB PO SCH (08:18)
[2019-07-06] MEDS: DULoxetine 30 MG (CYMBALTA) CAP PO SCH (08:18)
[2019-07-06] MEDS: METOCLOPRAMIDE 10 MG (REGLAN) TAB PO SCH ×2 (08:21→20:59)
[2019-07-06] MEDS: FINASTERIDE (PROSCAR) 5 MG TAB PO SCH (08:21)
--- NOTE | 2019-07-06 08:36 | Diagnostic Imaging Report ---
CHEST 1 VIEW, AP/PA ONLY INDICATION: Pneumonia. COMPARISON: 07/05/2019 FINDINGS: Right upper lobe confluent consolidations are unchanged. No new airspace disease. No pleural effusion or pneumothorax. Stable cardiac silhouette. IMPRESSION: 1. No change in right upper lobe pneumonia. Dictated by: Dictated on workstation # [id number]
[2019-07-06] MEDS ORDERED: NON-FORMULARY MEDICATION 1 EA EA (Duloxetine HCl 60 MG) PO SCH (09:00)
[2019-07-06] MEDS ORDERED: TIOTROPIUM BROMIDE (SPIRIVA) 5'S INHALER IH SCH (09:00)
[2019-07-06] MEDS ORDERED: NON-FORMULARY MEDICATION 1 EA EA (Budesonide/Formoterol Fumarate (Symbicort 160-4.5 Mcg In IH SCH (09:00)
[2019-07-06] MEDS ORDERED: NON-FORMULARY MEDICATION 1 EA EA (Finasteride (Proscar) 5 MG) PO SCH (09:00)
[2019-07-06] MEDS ORDERED: NON-FORMULARY MEDICATION 1 EA EA (Zolpidem Tartrate (Zolpidem Tartrate ER) 6.25 MG) PO SCH (09:00)
[2019-07-06] MEDS ORDERED: NON-FORMULARY MEDICATION 1 EA EA (Doxazosin Mesylate 8 MG) PO SCH (09:00)
[2019-07-06 11:06] VITALS: BP 158/73
[2019-07-06] MEDS: CEFEPIME 2,000 MG/SWFI 20 ML IV PUSH IV SCH ×2 (11:29)
--- NOTE | 2019-07-06 15:12 | NUR ---
SPO2 87% ON ROOM AIR @ REST. PLACED PT ON O2 @ 2 LPM, SPO2 INCREASED TO 94%.
[2019-07-06 15:53] VITALS: BP 142/80
--- NOTE | 2019-07-06 16:44 | Progress Note - Hospitalist ---
Subjective HPI/CC On Admission Date Seen by Provider: Jul 06, 2019 Time Seen by Provider: 12:45 Patient is a 69-year-old male with a past medical history of wbn-utvouuo-wpkbluiav diabetes hypertension and COPD who presented to the emergency department with a 3 week history of cough. He reports that he has had cough and mild shortness of breath worsening over the past 3-4 weeks. He states that it is worse at night. When also complains of some nasal congestion and head pressure. He developed right shoulder pain as well as his symptoms progressed. He denies any fever but has had chills. He hasn't had a decreased appetite. He also thinks that his is been sick. In the emergency room a chest x-ray was done which revealed a right upper lobe pneumonia. His lactic acid was elevated that he met no other sepsis criteria. He was also found to have a mild YARITZA. He is admitted for IV anabiotic and fluids. Subjective/Events-last exam Pt reports feeling better today but persistent cough. No new complaints. No sputum. Focused Exam Lactate Level 07/05/19 11:25: Lactic Acid Level 2.07*H 07/05/19 13:38: Lactic Acid Level 1.59 Objective Exam Vital Signs Vital Signs Date Time Temp Pulse Resp B/P (MAP) Pulse Ox O2 Delivery O2 Flow Rate FiO2 07/06/19 16:30 38.0 07/06/19 15:53 75 20 142/80 (100) 94 Room Air 07/05/19 15:37 21 Capillary Refill : Less Than 3 Seconds General Appearance: No Apparent Distress, WD/WN, Obese Respiratory: Lungs Clear, No Respiratory Distress Cardiovascular: Regular Rate, Rhythm, No Murmur Neurologic/Psychiatric: Alert, Oriented x3, Normal Mood/Affect Results/Procedures Lab Laboratory Tests 07/06/19 05:29 Patient resulted labs reviewed. Imaging: Reviewed Imaging Films, Reviewed Imaging Report Assessment/Plan Assessment and Plan Assess & Plan/Chief Complaint CAP Continue Cefepime Await cultures MAT protocol Will need home oxygen study Will need follow up CXR with Pulmonology in [place] YARITZA hold nephrotoxic drugs and diuretics IVF, trend Slightly improved today HTN CHF a-fib Follows with cardiology in [place] has pacemaker, not on anticoagulation NIDDMI SSI Hold home metformin due to lactic acidosis Parkinson's Disease Denies history but on Sinemet as an outpatient Diagnosis/Problems Diagnosis/Problems (1) Pneumonia Status: Acute Qualifiers: Pneumonia type: due to unspecified organism Laterality: right Lung location: upper lobe of lung Qualified Codes: J18.1 - Lobar pneumonia, unspecified organism (2) Acute kidney injury Status: Acute (3) COPD (chronic obstructive pulmonary disease) Status: Acute Clinical Quality Measures DVT/VTE Risk/Contraindication: Risk Factor Score Per Nursin RFS Level Per Nursing on Admit: 4+=Very High RICHARD PETERSEN MD Jul 06, 2019 16:43
--- NOTE | 2019-07-06 17:03 | NUR ---
CM/SS visited with patient to help set up oxygen for home. The patient was provided with a list of DME providers. The patient verbalized that his first preference would be [facility] because he has used them in the past. [facility] was contacted and the qualifiers with his face sheet, h&p, and ER report were faxed to the agency. They were informed that the patient has a planned discharge for tomorrow 07/07 and a script would be sent over when completed. Will continue to follow to finalize discharge plan.
[2019-07-06 19:06] VITALS: BP 145/71
[2019-07-06] MEDS: ZOLPIDEM 5 MG (AMBIEN) TAB PO SCH (20:58)
[2019-07-06] MEDS: AMITRIPTYLINE 50 MG (ELAVIL) TAB PO SCH (20:59)
[2019-07-06] MEDS: ALLOPURINOL 300 MG (ZYLOPRIM) TAB PO SCH (20:59)
[2019-07-06] MEDS: DONEPEZIL 10 MG (ARICEPT) TAB PO SCH (20:59)
[2019-07-06] MEDS: ROSUVASTATIN 20 MG (CRESTOR) TABLET PO SCH (20:59)
[2019-07-06] MEDS: rOPINIRole 1 MG (REQUIP) TABLET PO SCH (21:00)
[2019-07-07 00:13] VITALS: BP 137/68
[2019-07-07] MEDS: NS IV 1000 ML 1,000 ML IV SCH (00:44)
[2019-07-07 03:14] VITALS: BP 140/70
[2019-07-07 05:11] LABS: RED CELL DISTRIBUTION WIDTH 15.7 % (10.0-14.5); WHITE BLOOD COUNT 10.5 10^3/uL (4.3-11.0)
[2019-07-07 05:25] LABS: CREATININE SERUM 1.68 MG/DL (0.60-1.30); POTASSIUM 3.2 MMOL/L (3.6-5.0)
[2019-07-07] MEDS: inSUlin ASPART (NovoLOG) 1 UNIT/0.01 ML (CHARGE PER UNIT) SC SCH ×2 (06:34→12:07)
[2019-07-07] MEDS: SINEMET 25/100 (CARBIDOPA/LEVODOPA) TAB PO SCH (06:34)
[2019-07-07] MEDS: RT-ADVAIR HFA 115/21 MCG PER PUFF IH SCH (07:44)
[2019-07-07] MEDS: RT-ALBUTEROL/IPRATROPIUM 3 ML (DUONEB) VIAL INH SCH ×2 (07:44→11:15)
[2019-07-07] MEDS: UMECLIDINIUM BROMIDE (INCRUSE ELLIPTA) 7'S IH SCH (07:44)
[2019-07-07 08:00] VITALS: BP 127/59
[2019-07-07] MEDS: doxAzosin 4 MG (CARDURA) TAB PO SCH (08:51)
[2019-07-07] MEDS: METOCLOPRAMIDE 10 MG (REGLAN) TAB PO SCH (08:51)
[2019-07-07] MEDS: FINASTERIDE (PROSCAR) 5 MG TAB PO SCH (08:51)
[2019-07-07] MEDS: CARVEDILOL 12.5 MG (COREG) TABLET PO SCH (08:51)
[2019-07-07] MEDS: DULoxetine 30 MG (CYMBALTA) CAP PO SCH (08:51)
[2019-07-07] MEDS: ASPIRIN E.C. 81 MG (ECOTRIN) TAB PO SCH (08:51)
[2019-07-07] MEDS ORDERED: CEFD300C3 PO (09:14)
--- NOTE | 2019-07-07 09:18 | Discharge Inst-Simple/Standard ---
Discharge Inst-Standard Patient Instructions/Follow Up Plan of Care/Instructions/FU: Please continue to take your medications as written. Please follow up with your primary care physician in the next week to follow up this hospital stay. You will need a repeat chest x-ray in a couple weeks. Activity as Tolerated: Yes Discharge Diet: Cardiac Diet Return to The Hospital For: Chest pain, shortness of breath, fevers, if you feel you are getting worse. RICHARD PETERSEN MD Jul 07, 2019 09:18
--- NOTE | 2019-07-07 09:23 | Discharge Summary ---
Diagnosis/Chief Complaint Date of Admission Jul 05, 2019 at 13:56 Date of Discharge Discharge Date: Jul 07, 2019 Admission Diagnosis [facility] Cristin Gaffney MD Discharge Diagnosis (1) Pneumonia Status: Acute (2) Acute kidney injury Status: Acute (3) COPD (chronic obstructive pulmonary disease) Status: Acute Discharge Summary Discharge Physical Exam Allergies: Coded Allergies: No Known Drug Allergies (Unverified , 01/08/17) Vitals & I&Os Vital Signs Date Time Temp Pulse Resp B/P (MAP) Pulse Ox O2 Delivery O2 Flow Rate FiO2 07/07/19 12:00 36.2 86 24 110/55 91 Room Air 07/07/19 11:15 2.00 07/05/19 15:37 21 General Appearance: No Apparent Distress, WD/WN, Obese Respiratory: Lungs Clear, No Accessory Muscle Use, No Respiratory Distress Cardiovascular: Regular Rate, Rhythm, No Murmur Neurologic/Psychiatric: Alert, Oriented x3 Hospital Course Patient is 69-year-old male past medical history of COPD who was admitted due to community acquired pneumonia. Chest x-ray revealed a right upper lobe pneumonia. He was started on empiric treatment with Rocephin and azithromycin. He responded well and had an uneventful hospital stay. He was tested for home oxygen and was found to need 2 L/m. This was arranged prior to discharge. He was discharged home in stable condition to complete oral antibiotic course. Labs (last 24 hrs) Microbiology 07/07/19 Gram Stain - Final, Resulted 07/07/19 Sputum Culture - Preliminary, Resulted Usual upper respiratory leonila 07/05/19 Blood Culture - Preliminary, Resulted No growth Patient resulted labs reviewed. Pending Labs Imaging: Reviewed Imaging Films, Reviewed Imaging Report Discussion & Recommendations Discharge Planning: >30 minutes discharge planning Discharge Home Medications: Active Scripts Active Cefdinir 300 Mg Capsule 300 Mg PO BID Reported Vitamin C (Ascorbic Acid) 250 Mg Tab 250 Mg PO DAILY Multi-Vitamin Daily (Multivitamin) 1 Each Tablet 1 Each PO DAILY Torsemide 20 Mg Tablet 20 Mg PO DAILY Rosuvastatin Calcium 20 Mg Tablet 20 Mg PO HS Metformin HCl 500 Mg Tablet 500 Mg PO DAILY Proair Hfa (Albuterol Sulfate) 1 Puff Puff 2 Puff IH Q6H PRN Spiriva (Tiotropium Solomon) 1 Inh Aerp 2 Inh IH DAILY Aldactone (Spironolactone) 25 Mg Tablet 25 Mg PO DAILY Metolazone 5 Mg Tablet 5 Mg PO DAILY PRN USE IF WEIGHT GAIN OF 3LBS OR MORE IN 24 HOURS OR 5LBS OR MORE IN 72 HOURS) Reglan (Metoclopramide HCl) 10 Mg Tablet 20 Mg PO BID TAKES 2 (10MG) TABS LAST FILLED 03-12-2019 #120 Proscar (Finasteride) 5 Mg Tablet 5 Mg PO DAILY Duloxetine HCl 60 Mg Capsule.dr 60 Mg PO DAILY Aspirin EC (Aspirin) 81 Mg Tablet.dr 81 Mg PO DAILY Amitriptyline HCl 50 Mg Tablet 50 Mg PO HS Potassium Chloride 20 Meq Tablet.er 20 Meq PO BID Ropinirole HCl 2 Mg Tablet 6 Mg PO HS TAKES 3 (2MG) TABS Allopurinol 300 Mg Tablet 600 Mg PO HS Sinemet 25-100 mg Tablet (Carbidopa/Levodopa) 1 Each Tablet 3 Tab PO BID Zolpidem Tartrate ER (Zolpidem Tartrate) 6.25 Mg Tab.mphase 6.25 Mg PO DAILY Doxazosin Mesylate 8 Mg Tablet 8 Mg PO DAILY Carvedilol 25 Mg Tablet 25 Mg PO BID Symbicort 160-4.5 Mcg Inhaler (Budesonide/Formoterol Fumarate) 10.2 Gm Hfa.aer.ad 2 Puff IH DAILY Donepezil HCl 10 Mg Tablet 10 Mg PO HS LAST FILLED 04-27-2019 #3030 DAY SUPPLY Instructions to patient/family Please see electronic discharge instructions given to patient. Clinical Quality Measures DVT/VTE Risk/Contraindication: Risk Factor Score Per Nursin RFS Level Per Nursing on Admit: 4+=Very High Problem Qualifiers (1) Pneumonia: Pneumonia type: due to unspecified organism Laterality: right Lung location: upper lobe of lung Qualified Codes: J18.1 - Lobar pneumonia, unspecified organism (2) COPD (chronic obstructive pulmonary disease): Qualified Codes: J44.9 - Chronic obstructive pulmonary disease, unspecified RICHARD PETERSEN MD Jul 07, 2019 09:23
[2019-07-07 12:00] VITALS: BP 110/55
[2019-07-07] MEDS: CEFEPIME 2,000 MG/SWFI 20 ML IV PUSH IV SCH ×2 (12:07)
== END 2019-07-07 12:00 | disposition home or self-care (01) | DRG 194 ==
LOC: EDUNIT# 11:03 → ER 11:04 → 4TH 13:56
PROVIDERS: ADMIT Family Medicine; ATTEND Family Medicine
DX: J18.9 Pneumonia, unspecified organism (principal); N17.9 Acute kidney failure, unspecified; E87.2 Acidosis; I69.351 Hemiplegia and hemiparesis following cerebral infarction affecting right dominant side; J44.9 Chronic obstructive pulmonary disease, unspecified; E11.40 Type 2 diabetes mellitus with diabetic neuropathy, unspecified; I11.0 Hypertensive heart disease with heart failure; I50.9 Heart failure, unspecified; I48.91 Unspecified atrial fibrillation; G20 Parkinson's disease; I25.10 Atherosclerotic heart disease of native coronary artery without angina pectoris; E78.00 Pure hypercholesterolemia, unspecified; I73.9 Peripheral vascular disease, unspecified; F03.90 Unspecified dementia, unspecified severity, without behavioral disturbance, psychotic disturbance, mood disturbance, and anxiety; K21.9 Gastro-esophageal reflux disease without esophagitis; M81.0 Age-related osteoporosis without current pathological fracture; M19.91 Primary osteoarthritis, unspecified site; M10.9 Gout, unspecified; F43.10 Post-traumatic stress disorder, unspecified; F41.9 Anxiety disorder, unspecified; F31.9 Bipolar disorder, unspecified; Z95.0 Presence of cardiac pacemaker; Z79.84 Long term (current) use of oral hypoglycemic drugs; Z87.891 Personal history of nicotine dependence; Z95.5 Presence of coronary angioplasty implant and graft
CPT/HCPCS: 36415; 71045; 71046; 80048; 80053; 82962; 83605; 83880; 84484; 85007; 85025; 85027; 87040; 87070; 87205; 87804; 93005; 94640; 94664; 94760

== ENCOUNTER → 2019-11-29 | Outpatient (CLI) | payer MEDICARE, OTHER ==
[~2019-11-29] MED LIST changes: +ALLO300T2 PO; +AMIT50TA3 PO; +ASPI-983 PO; +C250T PO; +CEFD300C3 PO; +DULO60CA59 PO; +FINA5TAB PO; +METF-478 PO; +METO-310 PO; +METO5TAB6 PO; +MULT-974 PO; +POTA-51 PO; +ROPI2TAB6 PO; +ROSU20TA32 PO; +ROSU40TA23 PO; +RT-ALBUINH IH; +SPIR25TA PO; +TIOT18CA2 IH; +TORS20TA3 PO; +ZOLP6.2525 PO
--- NOTE | 2019-11-29 14:44 | Diagnostic Imaging Report ---
PROCEDURE: CT chest without contrast. TECHNIQUE: Multiple contiguous axial images were obtained through the chest without the use of intravenous contrast. Auto Exposure Controls were utilized during the CT exam to meet ALARA standards for radiation dose reduction. INDICATION: Lung nodule. COMPARISON: Radiograph dated July 06, [address] dated December 28, 2016. FINDINGS: Pacer device is present with the battery pack overlying the left chest. Right-sided Port-A-Cath is present. No significant adenopathy within the chest. Mild scattered vascular calcifications, particularly within the coronary arteries. No aneurysmal dilatation of the thoracic aorta. The heart is enlarged. No pericardial effusion. No significant pleural effusion. No pneumothorax. Mild background paraseptal emphysematous changes. Increasing scarring and fibrosis is noted within the peripheral aspect of the right upper lobe. Increasing reticular and interstitial opacities are identified within the right lower lobe adjacent to emphysematous changes. A 1 cm dependently layering filling defect is noted within the right mainstem bronchus. The trachea is patent. The partially visualized upper abdomen is unremarkable. Chronic superior endplate deformity within the mid thoracic spine. No acute osseous abnormality with mild scattered osseous degenerative changes. IMPRESSION: Mild background emphysematous changes with worsening interstitial lung disease and fibrosis when compared to the prior examination of 2016. Small filling defect within the right mainstem bronchus. This is favored to simply relate to secretions, though mass lesions not excluded. Cardiomegaly. Additional findings as described above. A follow-up CT of the chest is recommended in three months to reevaluate the filling defect within the right mainstem bronchus. Dictated by: Dictated on workstation # [id number]
== END ==
LOC: RAD 13:24
PROVIDERS: ATTEND Physician Assistant
DX: J43.9 Emphysema, unspecified (principal); J84.9 Interstitial pulmonary disease, unspecified; I51.7 Cardiomegaly; Z95.828 Presence of other vascular implants and grafts
CPT/HCPCS: 71250

== ENCOUNTER → 2020-07-05 | Outpatient (CLI) | payer MEDICARE, OTHER ==
[~2020-07-05] VITALS: Ht 172 cm; Wt 125.0 kg
[~2020-07-05] MED LIST changes: +AMLO-251 PO; -AMLO10TA7 PO; +ASCO250T16 PO; +ASPI-1238 PO; -ASPI-983 PO; -C250T PO; +CATHETER FLUSH 10 ML SYR IV PRN; -COLC0.6T56 PO; +COLC0.6T59 PO; -PANT40TA3 PO; +PANT40TA52 PO; +REGADENOSON 0.4 MG/5 ML SYR (LEXISCAN) IV ONE; -ZOLP6.2525 PO; +ZOLP6.2538 PO
[2020-07-05 12:40] VITALS: BP 176/67
--- NOTE | 2020-07-05 15:07 | Cardiology Stress Test Report ---
Stress Test Report Date of Procedure/Referring: Date of Procedure: Jul 05, 2020 Patti Curran Admitting Physician Sarah Sharma MD Indications: Coronary artery disease Baseline Heart Rate: 79 Baseline Blood Pressure: Blood Pressure Systolic: 176 Blood Pressure Diastolic: 67 Baseline Vitals Vital Signs Date Time Temp Pulse Resp B/P (MAP) Pulse Ox O2 Delivery O2 Flow Rate FiO2 07/05/20 12:40 61 18 176/67 (103) 98 Room Air Baseline EKG: Baseline EKG: sinus rhythm and ventricular paced rhythm Summary After explaining the procedure to the patient, he signed a consent and then brought to the stress nuclear laboratory. Patient received 0.4 mg Lexiscan for stress test, ECG, heart rate and blood pres sure were monitored continuously. Resting and stress dose of radio tracer were injected, imaging was acquired and reviewed in short axis, horizontal long axis and vertical long axis views. TID: 1.05 SSS: 0 SDS: 0 EF: 36 1. Patient tolerated Lexiscan well 2. Baseline paced rhythm persisted during test 3. Diaphragmatic attenuation with fixed defect at the basal to mid inferior wall, no significant ischemia or infarction on SPECT images 4. Gated images showed diffuse hypokinesia with ejection fraction 36 percent, changing the modality of the calculation showed 55 percent. Probably inaccurate due to the underlying paced rhythm MARY SQUIRES MD Jul 05, 2020 15:07
== END ==
LOC: CARD 10:56
PROVIDERS: ATTEND Physician Assistant
DX: I25.10 Atherosclerotic heart disease of native coronary artery without angina pectoris (principal)
CPT/HCPCS: 78452; 93017; 93306; A9502

== ENCOUNTER → 2020-10-02 | Outpatient (CLI) | payer MEDICARE, OTHER ==
[~2020-10-02] MED LIST changes: +HOLD METFORMIN - RECEIVED CONTRAST 20 ML VIAL IV SCH; +IOHEXOL 350 MG/ML 100 ML (OMNIPAQUE 350) VIAL IV ONE; +ISOS60TA63 PO; -LISI10TA2 PO; +LISI10TA25 PO; +NS 100 ML (IVPB) BAG IV ONE; -REGADENOSON 0.4 MG/5 ML SYR (LEXISCAN) IV ONE
[2020-10-02 12:55] LABS: BUN/CREATININE RATIO 17; CREATININE SERUM 1.03 MG/DL (0.60-1.30); GFR ESTIMATED > 60
--- NOTE | 2020-10-02 15:33 | Diagnostic Imaging Report ---
EXAMINATION: CT Chest with intravenous contrast. TECHNIQUE: Multiple contiguous axial images were obtained through the chest after the uneventful administration of intravenous contrast. All CT scans use one or more of the following dose optimizing techniques: automated exposure control, MA and/or KvP adjustment based on a patient size and exam type, or iterative reconstruction. HISTORY: COPD and shortness of breath. COMPARISON: CT chest from 11/29/2019. FINDINGS: Thyroid: Subcentimeter left thyroid nodule is unchanged. No follow-up is required. Mediastinum: Heart size is normal without significant pericardial effusion. Calcifications of the aorta and coronary vessels. Thoracic aorta is normal in caliber. A right-sided port catheter is present. No suspicious lymphadenopathy. Lungs and airways: There are peripheral predominant emphysematous changes throughout both lungs which are not significantly changed from 11/29/2019. There is no consolidation, pleural effusion, or pneumothorax. There is no new suspicious pulmonary nodule. The airways are normal. Upper abdomen: The subphrenic structures are normal. Musculoskeletal: Degenerative changes of the spine without suspicious osseous lesion or compression fracture. Stable midthoracic compression deformity. Bilateral gynecomastia. IMPRESSION: 1. No acute abnormality in the chest. 2. Stable findings of peripheral predominant emphysema. Dictated by: Dictated on workstation # [id number]
== END ==
LOC: RAD 12:23
PROVIDERS: ATTEND Internal Medicine Critical Care Medicine
DX: Z13.83 Encounter for screening for respiratory disorder NEC (principal); J43.9 Emphysema, unspecified
CPT/HCPCS: 36415; 71260; 82565; 84520

== ENCOUNTER → 2020-11-06 | Outpatient (CLI) | payer MEDICARE, OTHER ==
[~2020-11-06] MED LIST changes: +CARB-275 PO; -CATHETER FLUSH 10 ML SYR IV PRN; -HOLD METFORMIN - RECEIVED CONTRAST 20 ML VIAL IV SCH; -IOHEXOL 350 MG/ML 100 ML (OMNIPAQUE 350) VIAL IV ONE; -NS 100 ML (IVPB) BAG IV ONE; +RT-ALBUTEROL SULF 2.5 MG/3 ML PRE-MIX VIAL INH ONE
== END ==
LOC: RAD 10:00
PROVIDERS: ATTEND Nurse Practitioner Family
DX: Z13.83 Encounter for screening for respiratory disorder NEC (principal); R06.00 Dyspnea, unspecified; R13.10 Dysphagia, unspecified
CPT/HCPCS: 94060; 94726; 94729

== ENCOUNTER 2021-01-19 19:25 | Outpatient (CLI) | payer MEDICARE, OTHER ==
[~2021-01-19 19:25] MED LIST changes: -RT-ALBUTEROL SULF 2.5 MG/3 ML PRE-MIX VIAL INH ONE; -SULF1TAB35 PO; +SULF1TAB38 PO
== END 2021-01-20 07:03 | disposition home or self-care (01) ==
LOC: SLEEP 19:25
PROVIDERS: ATTEND Nurse Practitioner Family
DX: G47.33 Obstructive sleep apnea (adult) (pediatric) (principal); Z20.822 Contact with and (suspected) exposure to COVID-19
CPT/HCPCS: 87635; 95811

== ENCOUNTER → 2021-05-04 | Outpatient (CLI) | payer MEDICARE ==
[2021-05-04 11:26] LABS: ALBUMIN 4.4 GM/DL (3.2-4.5); BILIRUBIN,TOTAL 0.7 MG/DL (0.1-1.0); CALCIUM 9.4 MG/DL (8.5-10.1); CREATININE SERUM 1.56 MG/DL (0.60-1.30); POTASSIUM 4.5 MMOL/L (3.6-5.0); TOTAL PROTEIN 7.2 GM/DL (6.4-8.2)
== END ==
LOC: LAB 10:45
PROVIDERS: ATTEND Internal Medicine Cardiovascular Disease
DX: E78.2 Mixed hyperlipidemia (principal)
CPT/HCPCS: 36415; 80053; 80061

== ENCOUNTER 2021-09-17 10:00 | Day surgery (SDC) | payer MEDICARE ==
[2021-09-17] VITALS (12 sets, daily range): BP systolic 112–157; BP diastolic 50–80
[~2021-09-17] VITALS: Ht 172.7 cm; Wt 127.0 kg
--- NOTE | 2021-09-17 08:19 | Diagnostic Imaging Report ---
Indication: Pacemaker end-of-life. Time Of Exam: 8:08 AM Correlation is made with prior chest from 07/06/2019. Dual lead left subclavian cardiac pacemaker is in place. There appears to be a right chest wall port with tip overlying the right atrium. There are some generalized interstitial changes but no acute infiltrates or evidence of failure is seen. There is no effusion or pneumothorax. IMPRESSION: No acute cardiopulmonary process is detected. Dictated by: Dictated on workstation # [id number]
[2021-09-17 08:27] LABS: BILIRUBIN,URINE NEGATIVE (NEGATIVE); CLARITY,URINE CLEAR; COLOR,URINE YELLOW; GLUCOSE, URINE (UA) 3+ (NEGATIVE); KETONES,URINE NEGATIVE (NEGATIVE); LEUKOCYTE ESTERASE ,URINE NEGATIVE (NEGATIVE); NITRITE,URINE NEGATIVE (NEGATIVE); PROTEIN,URINE NEGATIVE (NEGATIVE)
[2021-09-17 08:28] LABS: HEMATOCRIT 41 % (40-54); HEMOGLOBIN 13.5 g/dL (13.3-17.7); MEAN CORPUSCULAR HEMOGLOBIN 29 pg (25-34); MEAN CORPUSCULAR HGB CONC 33 g/dL (32-36); MEAN CORPUSCULAR VOLUME 89 fL (80-99); MEAN PLATELET VOLUME 9.5 fL (9.0-12.2); PLATELET COUNT 190 10^3/uL (130-400); WHITE BLOOD COUNT 5.6 10^3/uL (4.3-11.0)
[2021-09-17 08:45] LABS: INR 1.1 (0.8-1.4); PROTHROMBIN TIME PATIENT 14.6 SEC (12.2-14.7)
[2021-09-17 08:47] LABS: ALBUMIN 4.3 GM/DL (3.2-4.5); BILIRUBIN,TOTAL 0.7 MG/DL (0.1-1.0); CALCIUM 9.3 MG/DL (8.5-10.1); CREATININE SERUM 0.98 MG/DL (0.60-1.30); TOTAL PROTEIN 6.9 GM/DL (6.4-8.2)
[2021-09-17 09:00] LABS: BACTERIA,URINE NEGATIVE /HPF
--- NOTE | 2021-09-17 09:28 | Conscious Sedation/ASA ---
Conscious Sedation Pre-Proced Time 09:28 ASA Score 3 For ASA 3 and 4: Consider anesthesia and medical clearance. Also, for patients with a history of failed moderate sedation consider anesthesia. Airway Lungs Heart ASA score ASA 1: a normal healthy patient ASA 2: a patient with a mild systemic disease (mid diabetes, controlled hypertension, obesity x ASA 3: a patient with a severe systemic disease that limits activity (angina, COPD, prior Myocardial infarction) ASA 4: a patient with an incapacitating disease that is a constant threat to life (CHF, renal failure) ASA 5: a moribund patient not expected to survive 24 hrs. (ruptured aneurysm) ASA 6: a declared brain- patient whose organs are being harvested. For emergent operations, add the letter E after the classification Mallampati Classification Grade 3 Sedation Plan Analgesia, Amnesia, Plan communicated to team members, Discussed options with patient/fam, Discussed risks with patient/fam The patient is an appropriate candidate to undergo the planned procedure, sedation, and anesthesia. The patient immediately re-assessed prior to indication. MARY SQUIRES MD Sep 17, 2021 09:28
[~2021-09-17 10:00] MED LIST changes: +ACET-2267 PO; +EMPA25TA PO; +GLIP10TA13 PO; +HEParin (CATH LAB) 1,000 ML IV ONE; +LIDOCAINE 1% INJ 50 ML (XYLOCAINE) VIAL ONE; +LOSA50TA63 PO; +MELO15TA39 PO; +METF-399 PO; +MIDAZOLAM 5 MG/5 ML (VERSED) VIAL ONE; +NS (IVPB) 50 ML ONE; +NS IV 1000 ML 1,000 ML IV SCH; +NS IV 1000 ML 1,000 ML ONE; +OMEP20CA18 PO; +POTA-179 PO; -POTA10TA36 PO; +POTA10TA37 PO; -POTA20TA15 PO; +UBID1CAP53 PO; +ceFAZolin INJECTION 1,000 MG ONE; +ceFAZolin INJECTION 1,000 MG VIAL IV ONE; +fentaNYL INJ 100 MCG/2 ML AMP ONE
[2021-09-17] MEDS ORDERED: fentaNYL INJ 100 MCG/2 ML AMP ONE (10:31)
[2021-09-17] MEDS ORDERED: MIDAZOLAM 5 MG/5 ML (VERSED) VIAL ONE (10:32)
[2021-09-17] MEDS ORDERED: PATIENT MAY USE OWN MEDS, ALL PO SCH (11:00)
[2021-09-17] MEDS ORDERED: NS IV 1000 ML 1,000 ML IV SCH (11:00)
--- NOTE | 2021-09-17 11:01 | Packmaker Change ---
Pacemaker Change Physician (s)/Supervisor Prepress (s) Physician MARY SQUIRES MD Pre-Procedure Diagnosis Pre-Procedure Diagnosis: Sinus node dysfunction Post-Procedure Note Procedure Start Date: Sep 17, 2021 Name of Procedure: Dual-lead chambers pacemaker generator replacement Findings/Procedure Note 71 years old gentleman with history of permanent pacemaker. Had reached MAXIMILIANO. Scheduled for generator replacement. After explaining the procedure to the patient all pros and cons were explained all questions were answered patient was placed on the cardiac catheterization laboratory. Conscious sedation achieved, local anesthesia applied then skin incision was made. Pacemaker generator was retrieved and disconnected. New generator was attached to the leads. Tashi patch was used to minimize the risk of infection. Good sensing and capture activity was detected. Skin was closed on 2 layers with no complication. New device: JOHN XT MRI [id number] Conclusion: Successful dual-chamber pacemaker generator replacement with no complication Anesthesia Type: Conscious Sedation Estimated blood loss (mL): 10 ml Contrast Amount: 0 ml Post-Procedure Diagnosis Post-operative diagnosis: Sinus node dysfunction Permanent pacemaker Hypertension Hyperlipidemia MARY SQUIRES MD Sep 17, 2021 11:01
[2021-09-17] MEDS ORDERED: CEFU500T63 PO (11:02)
--- NOTE | 2021-09-17 11:03 | Discharge Inst-Post CATH ---
Discharge Inst-CATH/EP Problems Reviewed?: Yes Post Cardiac Cath/EP D/C Inst Follow Up/Plan Appointment with Dr. Carmona's office in 1 week for wound check <b>CARDIAC CATH/EP PROCEDURE DISCHARGE INSTRUCTIONS</b> ACTIVITY * Go Home directly and rest. * Limit activity of the leg (or wrist if it was used) for 7 days including aerobics, swimming, jogging, bicycling, etc. * Restrict stair-climbing for 7 days if possible, if not, climb up with your non-cath leg, then bring together on the same step. * Avoid lifting, pushing, pulling or excessive movement of the affected extremity for 7 days. * Customary sexual activity may be resumed after 2 days-use caution not to use a position that strains or causes pain to the affected extremity. * No driving for 24 hours. * NO SMOKING. * Avoid straining for bowel movements for 7 days. * Gentle walking on level ground is allowed. * Returning to work will depend on the type of procedure and the results. Your doctor will discuss this with you. CALL YOUR DOCTOR FOR ANY OF THE FOLLOWING: *If bleeding from the puncture site occurs- Apply gentle pressure to site with clean cloth and call your doctor or EMS. * If a knot or lump forms under the skin, increases in size, or causes pain. * If bruising appears to be worsening or moving further down your leg instead of disappearing. * Temperature above 101 F. CARE OF YOUR GROIN INCISION; * Bruising or purple discoloration of the skin near the puncture site is common. * You may shower only, no bathtub bathing for 5 days. Be careful to avoid slipping as your leg may feel stiff. * If a closure device was used on your femoral artery, please see the attached guide regarding care of the device and your leg. * Leave dressing on FOR 24 hours. CARE OF YOUR WRIST INCISION; * Bruising or purple discoloration of the skin near the puncture site is common. * You may shower. * DO NOT submerge wrist. * Leave dressing on FOR 24 hours. MARY CARMONA MD Sep 17, 2021 11:03
[2021-09-17] MEDS ORDERED: ceFAZolin INJECTION 1,000 MG in NS (IVPB) 50 ML IV SCH (14:00)
== END 2021-09-17 18:00 | disposition home or self-care (01) ==
LOC: CATH 10:00 → SDC 11:40 → CATH 18:00
PROVIDERS: ATTEND Internal Medicine Cardiovascular Disease
DX: Z45.010 Encounter for checking and testing of cardiac pacemaker pulse generator [battery] (principal); E11.40 Type 2 diabetes mellitus with diabetic neuropathy, unspecified; I25.10 Atherosclerotic heart disease of native coronary artery without angina pectoris; I11.0 Hypertensive heart disease with heart failure; I50.22 Chronic systolic (congestive) heart failure; I65.23 Occlusion and stenosis of bilateral carotid arteries; E78.2 Mixed hyperlipidemia; J44.9 Chronic obstructive pulmonary disease, unspecified; I67.4 Hypertensive encephalopathy; Z79.82 Long term (current) use of aspirin; Z79.899 Other long term (current) drug therapy; Z87.891 Personal history of nicotine dependence; Z95.5 Presence of coronary angioplasty implant and graft
CPT/HCPCS: 33228; 71045; 80053; 80061; 81000; 85027; 85610; 85730; 87081; C1785; 36415

== ENCOUNTER → 2021-12-18 | Outpatient (CLI) | payer MEDICARE, OTHER ==
[~2021-12-18] MED LIST changes: +CEFU500T63 PO; -HEParin (CATH LAB) 1,000 ML IV ONE; -LIDOCAINE 1% INJ 50 ML (XYLOCAINE) VIAL ONE; -MIDAZOLAM 5 MG/5 ML (VERSED) VIAL ONE; -NS (IVPB) 50 ML ONE; -NS IV 1000 ML 1,000 ML IV SCH; -NS IV 1000 ML 1,000 ML ONE; +RT-ALBUTEROL SULF 2.5 MG/3 ML PRE-MIX VIAL INH ONE; -ceFAZolin INJECTION 1,000 MG ONE; -ceFAZolin INJECTION 1,000 MG VIAL IV ONE; -fentaNYL INJ 100 MCG/2 ML AMP ONE
== END ==
LOC: RT 12:46
PROVIDERS: ATTEND Nurse Practitioner Family
DX: J44.9 Chronic obstructive pulmonary disease, unspecified (principal); I50.9 Heart failure, unspecified
CPT/HCPCS: 94060; 94726; 94729

== ENCOUNTER → 2022-04-04 | Outpatient (CLI) | payer MEDICARE, OTHER ==
[~2022-04-04] MED LIST changes: +POTA-177 PO; -POTA10TA37 PO; -RT-ALBUTEROL SULF 2.5 MG/3 ML PRE-MIX VIAL INH ONE
[2022-04-04 11:40] LABS: HEMATOCRIT 42 % (40-54); HEMOGLOBIN 14.4 g/dL (13.3-17.7); MEAN CORPUSCULAR HEMOGLOBIN 29 pg (25-34); MEAN CORPUSCULAR HGB CONC 34 g/dL (32-36); MEAN CORPUSCULAR VOLUME 84 fL (80-99); MEAN PLATELET VOLUME 9.3 fL (9.0-12.2); PLATELET COUNT 201 10^3/uL (130-400); WHITE BLOOD COUNT 7.4 10^3/uL (4.3-11.0)
[2022-04-04 12:00] LABS: ALBUMIN 4.5 GM/DL (3.2-4.5); BILIRUBIN,TOTAL 0.9 MG/DL (0.1-1.0); CALCIUM 9.7 MG/DL (8.5-10.1); CREATININE SERUM 1.1 MG/DL (0.60-1.30); TOTAL PROTEIN 7.5 GM/DL (6.4-8.2)
== END ==
LOC: CARD 11:01
PROVIDERS: ATTEND Internal Medicine Cardiovascular Disease
DX: I10 Essential (primary) hypertension (principal)
CPT/HCPCS: 80053; 80061; 83036; 84443; 85027; C8929; 36415; 93306

== ENCOUNTER → 2022-11-15 | Outpatient (CLI) | payer MEDICARE, OTHER ==
[~2022-11-15] MED LIST changes: +ALBU8.5H6 IH; -CARB-275 PO; +CARB-300 PO; -RT-ALBUINH IH
== END ==
LOC: CARD 08:56
PROVIDERS: ATTEND Internal Medicine Cardiovascular Disease
DX: I10 Essential (primary) hypertension (principal)
CPT/HCPCS: 93306

== ENCOUNTER → 2023-01-29 | Outpatient (CLI) | payer MEDICARE, OTHER ==
[~2023-01-29] VITALS: Ht 172 cm; Wt 120.0 kg
[~2023-01-29] MED LIST changes: -HYDR200T46 PO; +HYDR200T71 PO; +POTA-330 PO; -POTA-51 PO; +REGADENOSON 0.4 MG/5 ML SYR (LEXISCAN) IV ONE; -ROSU20TA32 PO; +ROSU20TA73 PO
[2023-01-29] MEDS: CATHETER FLUSH 10 ML SYR IVP PRN ×2 (07:29→08:59)
[2023-01-29 08:55] VITALS: BP 163/84
== END ==
LOC: CARD 07:15
PROVIDERS: ATTEND Internal Medicine Cardiovascular Disease
DX: I10 Essential (primary) hypertension (principal); I25.10 Atherosclerotic heart disease of native coronary artery without angina pectoris
CPT/HCPCS: 78452; 93017

== ENCOUNTER → 2023-03-31 | Outpatient (CLI) | payer MEDICARE ==
[~2023-03-31] MED LIST changes: +FINA-33 PO; -FINA5TAB PO; -REGADENOSON 0.4 MG/5 ML SYR (LEXISCAN) IV ONE; +ROPI2TAB52 PO; -ROPI2TAB6 PO
--- NOTE | 2023-03-31 17:45 | Diagnostic Imaging Report ---
INDICATION: Right calf pain and swelling. There is a 2 cm round fluid collection with a thin capsule that has low-level internal echoes scattered throughout it. In addition, there is a highly reflective well-circumscribed oval structure within this suspicious for a foreign body. This measures 7 mm in diameter. IMPRESSION: Subcutaneous foreign body with surrounding granulomatous reaction. Dictated by: Dictated on workstation # [id number]
== END ==
LOC: RAD 14:54
PROVIDERS: ATTEND Surgery
DX: M60.261 Foreign body granuloma of soft tissue, not elsewhere classified, right lower leg (principal)
CPT/HCPCS: 76881